=== PATIENT | male | born 1955 | race Caucasian/White ===

== ENCOUNTER 2021-09-15 19:11 | Inpatient (IN) | payer OTHER, SELFPAY ==
[2021-09-15] VITALS (24 sets, daily range): BP systolic 98–140; BP diastolic 75–90; PULSE 96–98; RESP 20; TEMP 37.8; O2SAT 94–100
--- NOTE | ~2021-09-15 | NM_ITS ---
EXAMINATION: NM pulmonary perfusion DATE: 09/16/2021 10:37 INDICATION: Shortness of breath. TECHNIQUE: 5.9 mCi Tc-99m MAA was administered intravenously for perfusion images. Scintigraphic mary ges of the chest were obtained. COMPARISON: Chest single view 09/15/2021 FINDINGS: Perfusion images show small defects in the lower lobes. IMPRESSION: 1. Pulmonary embolism absent (low probability). Reviewed, dictated and finalized at location [facility].
--- NOTE | ~2021-09-15 | XR_ITS ---
EXAMINATION: XR chest 1V portable INDICATION: Shortness of breath and cough TECHNIQUE: Portable AP chest at 1959 hours COMPARISON: None available FINDINGS: There are airspace opacities of the left lung base. There is no pleural effusion or pneumot horax. The cardiomediastinal silhouette is normal. IMPRESSION: 1. Left basilar airspace opacities, likely pneumonia. Reviewed, dictated and finalized at location F.
--- NOTE | 2021-09-15 19:45 | ECG_ITS ---
Measurements Intervals [place] Rate: 92 P: 23 [place]: 158 QRS: 31 QRSD: 97 T: 54 QT: 364 QTc: 451 Interpretive Statements SINUS RHYTHM NORMAL ECG NO PREVIOUS ECG AVAILABLE FOR COMPARISON Electronically Signed On 09-16-2021 16:49:27 CDT by Andrey Rice M.D.
[2021-09-15] MEDS: methylPREDNISolone SOD SUCC 125 MG VIAL IV PUSH (19:56)
[2021-09-15 20:07] LABS: Basophils Absolute Auto 0.03 K/mm3 (0.00-0.10); Basophils Percent Auto 0.4 % (0.0-1.0); Eosinophils Absolute Auto 0.18 K/mm3 (0.02-0.50); Eosinophils Percent Auto 2.3 % (1.0-6.0); Hematocrit 38.8 % (37.0-46.0); Hemoglobin 12.4 g/dL (12.4-15.3); Immature Granulocyte Absolute 0.05 K/mm3 (0.00-0.00); Immature Granulocyte Percent A 0.6 % (0.0-0.0); Immature Platelet Fraction Pct 1.3 % (1.0-7.0); Lymphocytes Absolute Auto 1.36 K/mm3 (1.10-4.50); Lymphocytes Percent Auto 17.2 % (18.0-42.0); Mean Corpuscular Hemoglobin 31.1 pg (27.0-31.0); Mean Corpuscular Volume 97.2 fL (78.0-102.0); Mean Platelet Volume 9.2 fl (8.7-11.0); Monocytes Absolute Auto 0.68 K/mm3 (0.10-0.90); Monocytes Percent Auto 8.6 % (2.0-11.0); Neutrophils Absolute Auto 5.6 K/mm3 (1.7-7.2); Neutrophils Percent Auto 70.9 % (50.0-70.0); Platelet Count Result 130 K/mm3 (150-420); Red Blood Count 3.99 M/mm3 (4.70-6.10); Red Cell Distribution Width 12.5 % (11.6-14.4); White Blood Count 7.9 K/mm3 (4.8-10.8)
[2021-09-15] MEDS: IPRATROPIUM 0.5 MG/ALBUTEROL SULFATE 2.5 MG AMPUL.NEB 3 ML INHALATION (20:10)
[2021-09-15 20:31] LABS: Alanine Aminotransferase 14 U/L (16-63); Albumin Level 3.2 g/dL (3.4-5.0); Alkaline Phosphatase 76 U/L (46-116); Anion Gap 7 mmol/L (8-16); Aspartate Amino Transferase 14 U/L (15-37); Bilirubin,Total 0.6 mg/dL (0.00-1.00); Blood Urea Nitrogen 23 mg/dL (7-18); Calcium 8.4 mg/dL (8.5-10.1); Carbon Dioxide 26 mmol/L (21-32); Chloride 100 mmol/L (98-108); Estimated Glomerular Filt Rate 32; Glucose 127 mg/dL (70-99); Magnesium 1.6 mg/dL (1.8-2.4); NT Pro B Type Natriuretic Pept 177 pg/mL (0-125); Osmolality Calculated 281 mOsm/kg (285-295); Potassium 3.7 mmol/L (3.5-5.1); Sodium 133 mmol/L (136-145); Total Protein 7.1 g/dL (6.4-8.2); Troponin I 6.9 ng/L (0.00-60.4)
[2021-09-15 20:40] LABS: Prothrombin Time 10.7 Seconds (9.50-12.10)
--- NOTE | 2021-09-15 20:51 | ED.SOB ---
HPI - SOB/Dyspnea General Chief Complaint: Upper Respiratory Infection Stated Complaint: trouble sleeping, cough, troubles with throat Source: patient and family Mode of arrival: ambulatory History of Present Illness HPI Narrative: this is a 66-year-old gentleman that presents with weakness cough congestion with increasing shortness of breath has been off and on for the last month but has some worse over the last 24hours patient currently on Symbicort/history of COPD and depression currently afebrile O2 sats and vital signs are stable patient denies having any chest pain no shortness no abdominal pain no nausea vomiting no flank pain patient is not a smoker and quit many years ago. MD elicited complaint: shortness of breath and cough Pertinent past history: COPD Onset (ago): week(s) Context: recent illness Timing: constant Severity: moderate Exacerbating factors: coughing Known history of: COPD Associated symptoms: cough Related Data Home Medications Medication Instructions Recorded Confirmed budesonide-formoterol HFA 160 1 inh inhalation DAILY 09/15/21 09/15/21 mcg-4.5 mcg/actuation aerosol inhaler (Symbicort) cyclobenzaprine 5 mg tablet 1 tablet PO TID 09/15/21 09/15/21 duloxetine 60 mg capsule,delayed 1 cap PO DAILY 09/15/21 09/15/21 release finasteride 5 mg tablet 1 tablet PO DAILY 09/15/21 09/15/21 fluticasone propionate 50 1 ea intranasal DAILY 09/15/21 09/15/21 mcg/actuation nasal spray,suspension hydrocodone 5 mg-acetaminophen 325 1 tablet PO Q6-8H 09/15/21 09/15/21 mg tablet ondansetron HCl 8 mg tablet 1 tablet PO DAILY 09/15/21 09/15/21 sertraline 50 mg tablet 1 tablet PO DAILY 09/15/21 09/15/21 tacrolimus 1 mg capsule, 1 cap PO TID 09/15/21 09/15/21 immediate-release tamsulosin 0.4 mg capsule 1 cap PO DAILY 09/15/21 09/15/21 trazodone 150 mg tablet 1 tablet PO DAILY 09/15/21 09/15/21 Allergies Allergy/AdvReac Type Severity Reaction Status Date / Time No Known Allergies Allergy Verified 09/15/21 19:32 Review of Systems Review of Systems: All systems reviewed & are unremarkable except as noted in HPI and below PMFSH Comments chest x-ray performed shows a left lower lobe infiltrate/opacities has an elevated D-dimer but in the context of having elevated creatinine will avoid CTA will start Eliquis and obtain a view to V/Q scan in the morning patient and family advised and informed of his current Lab and x-ray findings. Exam Const: General: alert Limitations: no limitations HENMT: Head: normal to inspection Eyes: Conjunctivae: conjunctivae normal Neck: Neck: normal visual inspection, no lymphadenopathy and no meningeal signs Chest: Chest palpation & inspection: normal inspection of the chest Resp: Effort & Inspection: normal respiratory effort Auscultation: diminished lung sounds Cardio: Rate: regular rate Rhythm: regular rhythm GI: GI Palp: Yes Soft to palpation Auscultation: normal bowel sounds Skin: General skin exam: normal color Rashes: no rashes Wounds: no wounds Neuro: General: patient oriented x3 and moves all extremities Extrem: General: normal to inspection Psych: Mental Status: mental status grossly normal Course Course Emergency Course: Labs and chest x-ray reviewed with family has an elevated D-dimer and will start Eliquis he has an elevated creatinine which prohibits getting a CTA and will admit and have a V/Q scan performed, patient with x-ray showing a left lower lobe infiltrate and will give a dose of ceftriaxone. Vital Signs Vital signs: Vital Signs Temperature 37.8 C H 09/15/21 19:30 Pulse Rate 98 09/15/21 19:30 Respiratory Rate 09/15/21 19:30 Blood Pressure 117/90 09/15/21 19:30 Pulse Oximetry 99 09/15/21 19:30 Oxygen Delivery Room Air 09/15/21 19:30 Temperature 37.8 C H 09/15/21 19:30 Pulse Rate 96 09/15/21 20:16 Respiratory Rate 20 09/15/21 19:30 Blood Pressure 128/76 09/15/21 20:16 Pulse
[2021-09-15 20:52] LABS: D Dimer 1.04 mg/L (0.19-0.50)
[2021-09-15] MEDS: SODIUM CHLORIDE 0.9% IV 1,000 ML 999 ML IV CONT (21:26)
[2021-09-15] MEDS: APIXABAN 2.5 MG TABLET 10 MG PO (21:27)
[2021-09-16] VITALS: BP 183/85; PULSE 93; RESP 20; TEMP 36.6; O2SAT 95
[2021-09-16] MEDS: ENOXAPARIN 100 MG/ML SYRINGE 94 MG SUB-Q ×2 (00:02→08:22)
[2021-09-16] MEDS: SODIUM CHLORIDE 0.9% IV 1,000 ML 100 ML IV CONT (00:03)
[2021-09-16] MEDS: traZODone HCL 50 MG TABLET 150 MG PO (00:05)
[2021-09-16] MEDS: IPRATROPIUM 0.5 MG/ALBUTEROL SULFATE 2.5 MG AMPUL.NEB 3 ML INHALATION ×2 (00:13→06:22)
[2021-09-16 00:14] VITALS: PULSE 88; RESP 19; O2SAT 95
--- NOTE | 2021-09-16 00:18 | PC.NURSE ---
Leslie admitted to room 204 from the ER. Patient is ambulatory, alert and oriented X 4. Patient oriented to room and call light and denies pain.
[2021-09-16 00:19] VITALS: PULSE 90; RESP 19; O2SAT 95
[2021-09-16 00:21] VITALS: BMI 32.2
[2021-09-16 05:06] LABS: Hematocrit 36.1 % (37.0-46.0); Hemoglobin 12.1 g/dL (12.4-15.3); Immature Platelet Fraction Pct 1.1 % (1.0-7.0); Mean Corpuscular HGB Conc 33.5 g/dL (32.0-36.0); Mean Corpuscular Hemoglobin 32.4 pg (27.0-31.0); Mean Corpuscular Volume 96.8 fL (78.0-102.0); Mean Platelet Volume 9.7 fl (8.7-11.0); Platelet Count Result 121 K/mm3 (150-420); Red Blood Count 3.73 M/mm3 (4.70-6.10); Red Cell Distribution Width 12.2 % (11.6-14.4); White Blood Count 5.1 K/mm3 (4.8-10.8)
[2021-09-16 05:21] LABS: Alanine Aminotransferase 11 U/L (16-63); Albumin Level 2.8 g/dL (3.4-5.0); Alkaline Phosphatase 71 U/L (46-116); Anion Gap 5 mmol/L (8-16); Aspartate Amino Transferase 13 U/L (15-37); Bilirubin,Total 0.3 mg/dL (0.00-1.00); Blood Urea Nitrogen 23 mg/dL (7-18); Calcium 8.3 mg/dL (8.5-10.1); Carbon Dioxide 24 mmol/L (21-32); Chloride 105 mmol/L (98-108); Estimated CRCL calculation 38 ml/min; Estimated Glomerular Filt Rate 38; Glucose 247 mg/dL (70-99); Magnesium 1.8 mg/dL (1.8-2.4); Osmolality Calculated 289 mOsm/kg (285-295); Potassium 4.6 mmol/L (3.5-5.1); Sodium 134 mmol/L (136-145); Total Protein 6.7 g/dL (6.4-8.2)
[2021-09-16 06:25] VITALS: PULSE 82; RESP 16; O2SAT 94
[2021-09-16 06:36] VITALS: PULSE 88; RESP 18; O2SAT 100
[2021-09-16 08:00] VITALS: BP 160/86; PULSE 88; RESP 22; TEMP 36.8; O2SAT 95
[2021-09-16] MEDS: FLUTICASONE PROPIONATE 0.05% NA SPR 16 GM BTL (*BKC) 1 SPRAY NASAL (08:21)
[2021-09-16] MEDS: DULoxetine HCL 30 MG CAPSULE.DR 60 MG PO (08:21)
[2021-09-16] MEDS: TAMSULOSIN HCL 0.4 MG CAPSULE PO (08:23)
[2021-09-16] MEDS: BENZONATATE 100 MG CAPSULE 200 MG PO (08:23)
[2021-09-16] MEDS: SERTRALINE HCL 50 MG TABLET PO (08:24)
[2021-09-16] MEDS: guaiFENesin 12 HR 600 MG TABCR 1200 MG PO (08:24)
[2021-09-16] MEDS: FINASTERIDE 5 MG TABLET PO (08:24)
[2021-09-16] MEDS: methylPREDNISolone SOD SUCC 40 MG VIAL IV PUSH (08:25)
[2021-09-16] MEDS: CYCLOBENZAPRINE HCL 5 MG TABLET PO (08:25)
[2021-09-16] MEDS: HYDROcodone/acetaminophen (*CRX) 5-325 MG TABLET 1 TAB PO (10:35)
--- NOTE | 2021-09-16 11:20 | PM.SD2 ---
Same Day Admit/Disch: HPI History of Present Illness Chief complaint: pheumonia Narrative: Maury Burch is a 66 year old male that presented to urgent care with uncontrollable coughing and shortness of breath. Patient has a past medical history of COPD, BPH, depression and anxiety and chronic pain. According to patient for approximately 1 week he has been experiencing uncontrolled coughing with shortness of breath. Patient notes that he coughed so hard that he felt as if he was going to blackout. Patient did note that he took his Symbicort inhaler during these coughing spells. Patient notes yesterday he was working in the yard and started to cough and felt lightheaded at that time he told his daughter that he wanted to come to our emergency department. Vital signs 160/86, 88, 22, 98.2, 95% on room air, WBCs 5.1, hemoglobin 12.1, hematocrit 36.1, platelets 121, D-dimer 1.04, sodium 134, potassium 4.6, BUN 23, creatinine 1.80, glucose 247, total bilirubin 0.3, AST 13, ALT 11, chest x-ray indicates pneumonia VQ scan low probability of PE, EKG sinus rhythm with a heart rate of 92. Patient be admitted for COPD extubation and pneumonia. Patient will discharge home today with antibiotics, albuterol inhaler, steroids and nebulizer with treatment. Patient notes that his situation has improved he still continues to have a cough but is more controlled. The patient denies CP, palpitation, extremity numbness, lightheadedness, dizziness, constipation, diarrhea, chills, or fever. [facility] Past Medical History Medical History (Updated 09/16/21 @ 11:29 by JAKE Laws) Anxiety and depression BPH (benign prostatic hyperplasia) COPD (chronic obstructive pulmonary disease) Insomnia Social History Social History Smoking status: Former smoker Tobacco type: cigarettes Alcohol intake: unknown Substance use: never Substance use type: does not use Spiritual care concerns: No Same Day Admit/Disch: Med Pre-admit Medications Home Medications Medication Instructions Recorded Confirmed Type budesonide-formoterol HFA 160 1 inh inhalation DAILY 09/15/21 09/15/21 History mcg-4.5 mcg/actuation aerosol inhaler (Symbicort) cyclobenzaprine 5 mg tablet 1 tablet PO TID 09/15/21 09/15/21 History duloxetine 60 mg capsule,delayed 1 cap PO DAILY 09/15/21 09/15/21 History release finasteride 5 mg tablet 1 tablet PO DAILY 09/15/21 09/15/21 History fluticasone propionate 50 1 ea intranasal DAILY 09/15/21 09/15/21 History mcg/actuation nasal spray,suspension hydrocodone 5 mg-acetaminophen 325 1 tablet PO Q6-8H 09/15/21 09/15/21 History mg tablet ondansetron HCl 8 mg tablet 1 tablet PO DAILY 09/15/21 09/15/21 History sertraline 50 mg tablet 1 tablet PO DAILY 09/15/21 09/15/21 History tacrolimus 1 mg capsule, 1 cap PO TID 09/15/21 09/15/21 History immediate-release tamsulosin 0.4 mg capsule 1 cap PO DAILY 09/15/21 09/15/21 History trazodone 150 mg tablet 1 tablet PO DAILY 09/15/21 09/15/21 History albuterol sulfate 90 mcg/actuation 1 inh inhalation QID PRN shortness 09/16/21 Rx aerosol inhaler of breath or wheezing #6.7 grams azithromycin 500 mg tablet 500 mg PO DAILY 7 days #7 tabs 09/16/21 Rx benzonatate 100 mg capsule 200 mg PO TID 7 days #42 caps 09/16/21 Rx cefdinir 300 mg capsule 300 mg PO Q12H 10 days #20 caps 09/16/21 Rx guaifenesin 400 mg tablet 400 mg PO QID 7 days #28 tabs 09/16/21 Rx ipratropium 0.5 mg-albuterol 3 mg 3 ml inhalation Q6H PRN shortness 09/16/21 Rx (2.5 mg base)/3 mL nebulization of breath #180 mL soln methylprednisolone 4 mg tablets in 4 mg PO DAILY #21 ea 09/16/21 Rx a dose pack (Medrol (Sergio)) nebulizers #1 ea 09/16/21 Rx Exam Narrative: GENERAL: This is a well-nourished, well-developed patient, in no apparent distress. HEAD: normocephalic, atraumatic. EYES: PERRL. Sclera clear/white. Vision is grossly intact. EARS: External ears normal, auditory canals clear and witho
--- NOTE | 2021-09-16 12:54 | PC.NURSE ---
1200 daughter at bedside went over orders with both. they both claim they understand [facility] and address given. meds were [facility]. dc per wc to [facility].
--- NOTE | 2021-09-20 09:49 | PC.NURSE ---
Unable to contact for discharge call back.
== END 2021-09-16 12:00 | disposition home or self-care (01) | DRG 139 ==
LOC: CHSED 19:20 → CHS2ND 22:41
PROVIDERS: Nurse Practitioner; Admitting Provider Internal Medicine; Emergency Provider Emergency Medicine; PCP Family Medicine; Visit Provider Internal Medicine
DX: J44.9 Chronic obstructive pulmonary disease, unspecified (principal); J18.9 Pneumonia, unspecified organism; R79.1 Abnormal coagulation profile; R06.00 Dyspnea, unspecified; E87.8 Other disorders of electrolyte and fluid balance, not elsewhere classified; J44.0 Chronic obstructive pulmonary disease with (acute) lower respiratory infection; N40.0 Benign prostatic hyperplasia without lower urinary tract symptoms; R94.4 Abnormal results of kidney function studies; F41.9 Anxiety disorder, unspecified; F32.A Depression, unspecified; Z87.891 Personal history of nicotine dependence
CPT/HCPCS: 36415; 71045; 78580; 80053; 83735; 83880; 84484; 85025; 85027; 85055; 85380; 85610; 85730; 87040; 93005; 94640; 96365; 96375; 99285; A9270; A9540; J0456; J0696; J1650; J2920; J2930; J7030

== ENCOUNTER 2021-10-13 12:15 | Outpatient (CLI) | payer OTHER, SELFPAY ==
--- NOTE | ~2021-10-13 | US_ITS ---
EXAMINATION: US arterial ankle brachial ind DATE: 10/13/2021 13:15 INDICATION: Claudication TECHNIQUE: Segmental pressures and plethysmographic and Doppler waveforms of the brachial and lower e xtremity arteries were obtained. COMPARISON: None. FINDINGS: Right and left brachial artery pressures of 115 mm Hg and 124 mm Hg, respectively, are concordant (no rmal difference <= 30 mmHg). The right ankle-brachial index (KAYLEIGH) is 1.38 (normal >= 0.9-1.0).. Arterial Doppler waveforms are tri phasic. The left KAYLEIGH is 1.31. The left TBI is . Arterial Doppler waveforms triphasic at the posterior tibial artery and lower amplitude and biphasic at the dorsalis pedis artery. IMPRESSION: Bilateral normal KAYLEIGH Reviewed, dictated and finalized at [facility]. Reviewed, dictated and finalized at location B. IMPRESSION: Bilateral normal KAYLEIGH
== END 2021-10-13 12:16 | disposition home or self-care (01) ==
LOC: CHSIMG 12:17
PROVIDERS: PCP Family Medicine; Visit Provider Family Medicine
DX: I73.9 Peripheral vascular disease, unspecified (principal)
CPT/HCPCS: 93922

== ENCOUNTER 2022-08-26 14:27 | Emergency (ER) | payer MEDICARE, MEDICAID, SELFPAY ==
[2022-08-26] VITALS (14 sets, daily range): BP systolic 140–172; BP diastolic 75–94; PULSE 66–92; RESP 17–20; TEMP 36.9–37.2; O2SAT 96–99
--- NOTE | ~2022-08-26 | CT_ITS ---
EXAMINATION: CT abdomen pelvis w con DATE: 08/26/2022 16:54 INDICATION: JAUNDICE, DIZZINESS HX LIVER TRANSPLANT 6 YRS AGO TECHNIQUE: Computed tomography (CT) of the abdomen and pelvis was performed with 100 mL Omnipaque-350 intravenous contrast. Automated exposure control and iterative reconstruction technique were employe d. The dose-length product was 932.99 mGy-cm. COMPARISON: 06/15/2014. FINDINGS: Lower thorax: Bibasilar atelectasis/scar. Lingular calcified granuloma. Coronary artery calcification . Symmetric bilateral gynecomastia. Liver: The transplant liver is normal in size. Moderate periportal edema. Patent hepatic veins. Biliary/Gallbladder: Gallbladder is absent. No bile duct dilation or inflammation. Pancreas: Atrophy. Spleen: Multiple stable hypodensities may represent cysts or hemangiomas. Adrenals:No mass. Kidneys: Bilateral simple cysts and lesions that are too small to characterize but also likely repres ent cysts. Punctate right midpole nonobstructing calculus. No hydronephrosis. GI tract: No small or large bowel dilation. Normal appendix. Diverticulosis without diverticulitis. Mesentery/Peritoneum: No ascites, mass, or free air. Upper abdominal varices. Patent portal vein and IVC. Retroperitoneum: No mass. Atherosclerotic abdominal aortic and/or arterial calcifications. 2.8 cm fus iform infrarenal abdominal aortic aneurysm. Pelvis: Pelvic organs are within normal limits. Soft Tissues: Soft tissues and body wall unremarkable. Bones: No acute osseous finding. IMPRESSION: Moderate periportal edema, a nonspecific finding that can be seen with liver transplantation as well as hepatitis, heart failure, cholangitis, and other entities. Additional chronic and incidental findi ngs detailed above. Reviewed, dictated and finalized at location K. IMPRESSION: Moderate periportal edema, a nonspecific finding that can be seen with liver tr ansplantation as well as hepatitis, heart failure, cholangitis, and other entit ies. Additional chronic and incidental findings detailed above.
--- NOTE | 2022-08-26 14:43 | ECG_ITS ---
Measurements Intervals [place] Rate: 89 P: 47 NE: 165 QRS: 67 QRSD: 105 T: 63 QT: 317 QTc: 386 Interpretive Statements SINUS RHYTHM MINIMAL Q WAVES- ANTEROLATERAL LEADS BORDERLINE ECG COMPARED TO ECG 09/15/2021 20:10:24 NO SIGNIFICANT CHANGES Electronically Signed On 08-26-2022 21:03:09 CDT by Christian Hicks D.O.
[2022-08-26] MEDS: SODIUM CHLORIDE 0.9% IV 1,000 ML 999 ML IV CONT (15:11)
[2022-08-26 16:07] LABS: Hematocrit 38.4 % (37.0-46.0); Hemoglobin 13.1 g/dL (12.4-15.3); Immature Platelet Fraction Pct 2.2 % (1.0-7.0); Mean Corpuscular HGB Conc 34.1 g/dL (32.0-36.0); Mean Corpuscular Hemoglobin 32.8 pg (27.0-31.0); Platelet Count Result 104 K/mm3 (150-420); Red Cell Distribution Width 16.5 % (11.6-14.4); White Blood Count 4.4 K/mm3 (4.8-10.8)
[2022-08-26 16:08] LABS: Bilirubin Urine 3+ (Negative); Blood Urine Negative (Negative); Glucose Urine UA Negative (Negative); Ketones Urine Negative (Negative); Leukocyte Esterase Ur Trace LEU/UL (Negative); Nitrate Urine Negative (Negative); Protein Urine 1+ (Negative); pH Urine 6.5 (5.0-8.0)
[2022-08-26 16:20] LABS: Add Urine Microscopic? YES; Amorphous Sediment Urine Few; Appearance Urine Slightly Cloudy (Clear); Color Urine Dark Amber (Yellow); Squamous Epithelial Cell Urine Many /hpf (Few); WBC Urine None seen /hpf (0-3)
[2022-08-26 16:21] LABS: Alanine Aminotransferase 407 U/L (16-63); Albumin Level 2.6 g/dL (3.4-5.0); Alkaline Phosphatase 511 U/L (46-116); Anion Gap 9 mmol/L (8-16); Aspartate Amino Transferase 340 U/L (15-37); Bilirubin,Total 12.4 mg/dL (0.00-1.00); Blood Urea Nitrogen 15 mg/dL (7-18); Calcium 8.6 mg/dL (8.5-10.1); Carbon Dioxide 24 mmol/L (21-32); Chloride 106 mmol/L (98-108); Estimated CRCL calculation 44 ml/min; Estimated Glomerular Filt Rate 46; Glucose 105 mg/dL (70-99); Lipase 16 U/L (16-77); Osmolality Calculated 288 mOsm/kg (285-295); Potassium 2.9 mmol/L (3.5-5.1); Sodium 139 mmol/L (136-145); Total Protein 5.9 g/dL (6.4-8.2)
[2022-08-26 16:22] LABS: Partial Thromboplastin Time 21.1 SEC (23.90-30.70); Prothrombin Time 10.8 Seconds (9.50-12.10)
[2022-08-26 16:24] LABS: Lactic Acid Reflex 1.2 mmol/L (0.4-2.0)
[2022-08-26 16:42] LABS: Band Neutrophils Percent 0 % (0-6); Basophils Absolute Manual 0.04 K/mm3 (0-0.1); Basophils Percent Manual 1 % (0-1); Eosinophils Absolute Manual 0.08 K/mm3 (0.02-0.5); Eosinophils Percent Manual 2 % (1-6); Lymphocytes Percent Manual 25 % (18-44); Monocytes Absolute Manual 0.39 K/mm3 (0.1-0.90); Monocytes Percent Manual 9 % (3-9); Neutrophils Absolute Manual 2.77 K/mm3 (1.3-6.7); Neutrophils Percent Manual 63 % (46-73); Platelet Estimate Adequate (Adequate); Schistocytes None Seen (NORMAL); Total Cells Counted 100
[2022-08-26 17:31] LABS: Ammonia 66 umol/L (11-32)
[2022-08-26] MEDS: SODIUM CHLORIDE 0.9% IV 500 ML 999 ML IV CONT (17:57)
[2022-08-26] MEDS: KCL 20 MEQ/SW 100 ML 100 ML 50 MEQ IVPB (17:58)
[2022-08-26] MEDS: POTASSIUM BICARBONATE 25 MEQ TABEF 50 MEQ PO (17:58)
--- NOTE | 2022-08-26 18:12 | ED.DIZZY ---
HPI - Dizziness General Chief Complaint: Dizziness Stated Complaint: jaundice Time Seen by Provider: 08/26/22 14:28 Source: patient and family Mode of arrival: ambulatory Limitations: no limitations History of Present Illness HPI Narrative: this is a 67-year-old gentleman with a history of liver transplant history of alcohol abuse and had quit for some time and recently had started alcohol use again presents with his daughter with the sensation of lightheadedness and just some weakness, also the patient has daughter has noticed that he is jaundiced skin and scleral icterus. The patient with a history of transplanted liver at [facility] approximately 6 years ago. The patient apparently is noncompliant with his medical care currently not on tacrolimus. Patient denies and fever or chills there is no abdominal pain no nausea or vomiting no flank pain does have dark colored urine with no diarrhea or constipation. MD elicited complaint: lightheadedness Onset (ago): hour(s) Timing: gradual onset Severity: mild Description: lightheadedness Related Data Home Medications Medication Instructions Recorded Confirmed budesonide-formoterol HFA 160 1 inh inhalation DAILY 09/15/21 08/27/22 mcg-4.5 mcg/actuation aerosol inhaler (Symbicort) duloxetine 60 mg capsule,delayed 1 cap PO DAILY 09/15/21 08/27/22 release finasteride 5 mg tablet 1 tablet PO DAILY 09/15/21 08/27/22 fluticasone propionate 50 1 ea intranasal DAILY 09/15/21 08/27/22 mcg/actuation nasal spray,suspension hydrocodone 5 mg-acetaminophen 325 1 tablet PO Q6-8H 09/15/21 08/27/22 mg tablet ondansetron HCl 8 mg tablet 1 tablet PO BID 09/15/21 08/27/22 sertraline 50 mg tablet 1 tablet PO DAILY 09/15/21 08/27/22 tacrolimus 1 mg capsule, 1 cap PO TID 09/15/21 08/27/22 immediate-release tamsulosin 0.4 mg capsule 1 cap PO HS 09/15/21 08/27/22 trazodone 150 mg tablet 1 tablet PO DAILY 09/15/21 08/27/22 amlodipine 10 mg tablet 10 mg PO DAILY 08/27/22 08/27/22 cyclobenzaprine 5 mg tablet 5 mg PO TID PRN Muscle Pain 08/27/22 08/27/22 furosemide 40 mg tablet 40 mg PO DAILY 08/27/22 08/27/22 gabapentin 800 mg tablet 800 mg PO DAILY 08/27/22 08/27/22 melatonin 3 mg capsule 3 mg PO HS PRN Insomnia 08/27/22 08/27/22 montelukast 10 mg tablet 10 mg PO DAILY 08/27/22 08/27/22 pantoprazole 40 mg tablet,delayed 40 mg PO QAM 08/27/22 08/27/22 release Allergies Allergy/AdvReac Type Severity Reaction Status Date / Time No Known Allergies Allergy Verified 08/26/22 14:55 Review of Systems Review of Systems: All systems reviewed & are unremarkable except as noted in HPI and below PMFSH Past Medical History Medical History Anxiety and depression BPH (benign prostatic hyperplasia) COPD (chronic obstructive pulmonary disease) Insomnia Social History Social History Smoking status: Former smoker Tobacco type: cigarettes Alcohol intake: unknown Substance use: never Substance use type: does not use Spiritual care concerns: No Exam Const: General: no acute distress Nutritional Appearance: well nourished Orientation/consciousness: patient oriented x3 Limitations: no limitations HENMT: Head: normal to inspection Eyes: Conjunctivae: conjunctivae normal and conjunctival abnormality ( Scleral icterus) Pupils: Equal, round and reactive pupils present EOM: EOMs intact bilaterally Neck: Neck: normal visual inspection Chest: Chest palpation & inspection: normal inspection of the chest Resp: Effort & Inspection: normal respiratory effort Auscultation: clear to auscultation bilaterally Cardio: Rate: regular rate Rhythm: regular rhythm GI: Auscultation: normal bowel sounds : General: Yes bladder normal to palpation Urinary Catheter: Urinary Catheter: patent and draining Back/Spine/Pelvis: Back: no CVA tenderness Skin: General skin exam: j
[2022-08-27] VITALS (7 sets, daily range): BP systolic 127–147; BP diastolic 61–89; PULSE 81–96; RESP 17–20; TEMP 36.8–37.9; O2SAT 96–98
--- NOTE | 2022-08-27 05:01 | PC.NURSE ---
pt states that the last time he had any alcohol was on 08/23/22.
[2022-08-27 08:00] LABS: Hemoglobin 12.9 g/dL (12.4-15.3); Mean Corpuscular HGB Conc 33.9 g/dL (32.0-36.0); Mean Corpuscular Volume 94.3 fL (78.0-102.0); Mean Platelet Volume 9.8 fl (8.7-11.0); Platelet Count Result 110 K/mm3 (150-420); Red Blood Count 4.03 M/mm3 (4.70-6.10); Red Cell Distribution Width 16.7 % (11.6-14.4)
[2022-08-27 08:14] LABS: Alanine Aminotransferase 355 U/L (16-63); Albumin Level 2.4 g/dL (3.4-5.0); Alkaline Phosphatase 505 U/L (46-116); Anion Gap 10 mmol/L (8-16); Aspartate Amino Transferase 310 U/L (15-37); Bilirubin,Total 13.5 mg/dL (0.00-1.00); Blood Urea Nitrogen 14 mg/dL (7-18); Calcium 8.2 mg/dL (8.5-10.1); Carbon Dioxide 23 mmol/L (21-32); Chloride 107 mmol/L (98-108); Estimated CRCL calculation 48 ml/min; Estimated Glomerular Filt Rate 51; Glucose 121 mg/dL (70-99); Osmolality Calculated 291 mOsm/kg (285-295); Potassium 3.7 mmol/L (3.5-5.1); Sodium 140 mmol/L (136-145); Total Protein 5.7 g/dL (6.4-8.2)
[2022-08-27] MEDS: HYDROcodone/acetaminophen (*CRX) 5-325 MG TABLET 1 TAB PO ×2 (08:53→13:01)
[2022-08-27 10:25] LABS: Band Neutrophils Percent 0 % (0-6); Basophils Absolute Manual 0.12 K/mm3 (0-0.1); Basophils Percent Manual 2 % (0-1); Eosinophils Absolute Manual 0.18 K/mm3 (0.02-0.5); Eosinophils Percent Manual 3 % (1-6); Lymphocytes Absolute Manual 1.32 K/mm3 (1.1-4.5); Lymphocytes Percent Manual 22 % (18-44); Monocytes Absolute Manual 0.54 K/mm3 (0.1-0.90); Monocytes Percent Manual 9 % (3-9); Neutrophils Absolute Manual 3.84 K/mm3 (1.3-6.7); Neutrophils Percent Manual 64 % (46-73); Platelet Estimate Adequate (Adequate); Schistocytes None Seen (NORMAL); Total Cells Counted 100
--- NOTE | 2022-08-27 12:03 | ED.PROGRESS ---
Subjective Date/time seen: 08/27/22 12:03 Interval history: The patient has been in the emergency room since yesterday, and was seen by the previous provider. See their note for further details. In brief, the patient presents with dizziness and lightheadedness which she responded to IV fluids, 2 L, and his symptoms from that have resolved. He still feels weak and tired. He does have jaundice which is painless. No abdominal discomfort to speak of. Does have lower back pain which is chronic for him and [address] was given earlier. He is on [place] [address] at home for pain. He has been noncompliant with his medications and his follow-up following his orthotopic liver transplantation at [facility] 6 years ago. He has gotten back to drinking alcohol again. No other complaints. A potassium yesterday of 2.9 was noted, which was supplemented. Repeat labs have been done, see results below. Review of Systems Review of Systems All systems reviewed & are unremarkable except as noted in HPI and below Constitutional Constitutional: Denies chills, Denies excessive sweating, Reports fatigue ( Generalized weakness, continues today), Denies fever(s), Denies headache(s) and Reports weakness ( generalized weakness continues today) Eyes Eyes: Denies change in vision and Denies photophobia ENT Denies dysphagia, Reports dizziness ( Dizziness yesterday, much improved and nearly resolved now.), Denies headache(s), Denies lip swelling, Denies nasal congestion, Denies sore throat and Denies tongue swelling Cardiovascular Cardiovascular: Denies chest pain, Denies syncope, Denies rapid heart rate and Denies dyspnea Respiratory Respiratory: Denies cough, Denies dyspnea and Denies wheezing Gastrointestinal Gastrointestinal: Denies abdominal pain, Denies constipation, Denies dysphagia, Denies diarrhea, Denies nausea and Denies vomiting Comments: no abdominal pain. painless jaundice present, both cutaneous and scleral Genitourinary Genitourinary: Denies hematuria, Denies dysuria, Denies urinary frequency and Denies urinary urgency Musculoskeletal Musculoskeletal: Reports back pain ( chronic), Denies myalgias, Denies arthralgias, Denies joint swelling and Denies numbness Integumentary/Breasts Skin/Breast: Denies pruritus, Denies erythema and Denies rash Neurologic Denies confusion, Denies dizziness, Denies syncope, Denies headache(s), Denies focal weakness, Denies numbness and Denies weakness Psychiatric Psychiatric: Denies anxiety and Denies confusion Endocrine Endocrine: Denies excessive sweating and Denies fatigue Hematologic/Lymphatic Hematologic/Lymphatic: Denies easy bleeding and Denies easy bruising Allergic/Immunologic Allergic/Immunologic: Denies lip swelling, Denies tongue swelling and Denies wheezing Exam Const General: healthy appearing, no acute distress, alert and well nourished Nutritional Appearance: well nourished Orientation/consciousness: patient oriented x3 Limitations: no limitations HENMT Head: normal to inspection Ears: external ears normal Face/Nose/Sinus: normal facial exam Face and sinus: normal facial exam Mouth: Yes moist mucous membranes Throat: posterior oropharynx normal Eyes Conjunctivae: conjunctivae normal Pupils: Equal, round and reactive pupils present EOM: EOMs intact bilaterally Other: scleral icterus Neck Neck: normal visual inspection and no meningeal signs Chest Chest palpation & inspection: normal inspection of the chest and no tenderness Resp Effort & Inspection: normal respiratory effort and not labored Auscultation: clear to auscultation bilaterally, no crackles, no rhonchi and no wheezes Cardio Rate: regular rate Rhythm: regular rhythm Heart sounds: no murmurs GI Inspection: non-distended GI Palp: Yes Soft to palpation, No Tenderness to palpation present (GI), No Guarding due to palpation present (GI) and No Rebound tenderness present General: Yes no CVA tenderness Back/Spine/Pelvis Back: no CVA
--- NOTE | 2022-08-27 15:25 | PC.NURSE ---
Per [facility] transfer center, patient remains on the transfer list and has been placed as a priority for transfer
== END 2022-08-27 17:58 | disposition short-term general hospital (02) ==
PROVIDERS: Emergency Medicine; Emergency Provider Emergency Medicine; PCP Family Medicine
DX: K70.10 Alcoholic hepatitis without ascites (principal); E87.6 Hypokalemia; J44.9 Chronic obstructive pulmonary disease, unspecified; Z94.4 Liver transplant status; Z79.891 Long term (current) use of opiate analgesic; Z87.891 Personal history of nicotine dependence
CPT/HCPCS: 36415; 74177; 80053; 81001; 82140; 83605; 83690; 85025; 85055; 85610; 85730; 93005; 96361; 96365; 96366; 99285; A9270; J3480; J7030; J7040; Q9967

== ENCOUNTER 2022-09-16 18:48 | Emergency (ER) | payer MEDICARE, MEDICAID, SELFPAY ==
[2022-09-16] VITALS (12 sets, daily range): BP systolic 116–135; BP diastolic 69–78; PULSE 92; RESP 20; TEMP 37.2; O2SAT 94–99
--- NOTE | ~2022-09-16 | CT_ITS ---
CT of the Abdomen and Pelvis: Indication: Jaundice, abdominal pain, prior history of liver transplant Technique: 2.5 mm axial scans were obtained through the abdomen and pelvis following intravenous adm inistration of 100 cc of Omnipaque 350. Dose reduction technique was used on this scan by utilizing a utomated exposure control and iterative reconstruction technique. The dose-length product (DLP) was 6 61.40 mGy-cm. COMPARISON: 08/26/2022 Findings: Scans through the lung bases are unremarkable. There is mild periportal edema. The liver, spleen, pancreas, adrenals and kidneys are otherwise withi n normal limits. Gallbladder is absent. There are atherosclerotic calcifications of the aorta. No ly mphadenopathy. No bowel obstruction or bowel wall thickening. There is no evidence to suggest acute appendicitis. Images through the pelvis were performed. Urinary bladder unremarkable. Prostate gland and seminal ve sicles are unremarkable. No ascites. Impression: No significant change from prior exam. Persistent periportal edema, a nonspecific finding. Reviewed, dictated and finalized at location . Impression: No significant change from prior exam. Persistent periportal edema, a nonspecif ic finding.
--- NOTE | 2022-09-16 19:21 | ECG_ITS ---
Measurements Intervals [place] Rate: 78 P: 44 MO: 146 QRS: 51 QRSD: 102 T: 59 QT: 429 QTc: 489 Interpretive Statements SINUS RHYTHM PROLONGED QT INTERVAL ABNORMAL ECG COMPARED TO ECG 08/26/2022 14:55:57 PROLONGED QT INTERVAL NOW PRESENT Electronically Signed On 09-18-2022 9:23:15 CDT by Johnathan Galindo M.D.
[2022-09-16] MEDS: SODIUM CHLORIDE 0.9% IV 1,000 ML 999 ML IV CONT (19:38)
[2022-09-16 19:49] LABS: Appearance Urine Clear (Clear); Bilirubin Urine Negative (Negative); Blood Urine Negative (Negative); Color Urine Yellow (Yellow); Glucose Urine UA Negative (Negative); Hematocrit 34.8 % (37.0-46.0); Hemoglobin 12.2 g/dL (12.4-15.3); Immature Platelet Fraction Pct 3.3 % (1.0-7.0); Ketones Urine Negative (Negative); Leukocyte Esterase Ur Negative LEU/UL (Negative); Mean Corpuscular HGB Conc 35.1 g/dL (32.0-36.0); Mean Corpuscular Hemoglobin 31.4 pg (27.0-31.0); Mean Corpuscular Volume 89.5 fL (78.0-102.0); Mean Platelet Volume 10.5 fl (8.7-11.0); Nitrate Urine Negative (Negative); Platelet Count Result 77 K/mm3 (150-420); Protein Urine Negative (Negative); Red Blood Count 3.89 M/mm3 (4.70-6.10); Red Cell Distribution Width 26.8 % (11.6-14.4); White Blood Count 9.2 K/mm3 (4.8-10.8)
[2022-09-16 19:52] LABS: Add Urine Microscopic? NO
[2022-09-16 20:03] LABS: Partial Thromboplastin Time 24.4 SEC (23.90-30.70); Prothrombin Time 10.5 Seconds (9.50-12.10)
[2022-09-16 20:10] LABS: Lactic Acid Reflex 1.1 mmol/L (0.4-2.0)
[2022-09-16 20:12] LABS: Alanine Aminotransferase 243 U/L (16-63); Albumin Level 2.2 g/dL (3.4-5.0); Alkaline Phosphatase 322 U/L (46-116); Anion Gap 7 mmol/L (8-16); Aspartate Amino Transferase 111 U/L (15-37); Blood Urea Nitrogen 39 mg/dL (7-18); CRP 3.6 mg/dL (0.0-0.9); Carbon Dioxide 27 mmol/L (21-32); Chloride 103 mmol/L (98-108); Estimated CRCL calculation 39 ml/min; Estimated Glomerular Filt Rate 41; Glucose 210 mg/dL (70-99); Lipase 46 U/L (16-77); NT Pro B Type Natriuretic Pept 190 pg/mL (0-125); Osmolality Calculated 299 mOsm/kg (285-295); Potassium 3.8 mmol/L (3.5-5.1); Sodium 137 mmol/L (136-145); Total Protein 5.3 g/dL (6.4-8.2)
[2022-09-16 20:18] LABS: Ammonia 49 umol/L (11-32)
[2022-09-16 20:18] LABS: Neutrophils Percent Manual 92 % (46-73); Total Cells Counted 100
[2022-09-16 20:19] LABS: Anisocytosis 1+ (NORMAL); Band Neutrophils Percent 1 % (0-6); Lymphocytes Absolute Manual 0.27 K/mm3 (1.1-4.5); Lymphocytes Percent Manual 3 % (18-44); Monocytes Absolute Manual 0.36 K/mm3 (0.1-0.90); Monocytes Percent Manual 4 % (3-9); Neutrophils Absolute Manual 8.55 K/mm3 (1.3-6.7); Platelet Estimate Decreased (Adequate); Schistocytes None Seen (NORMAL); Target Cells 3+ (NORMAL)
--- NOTE | 2022-09-16 20:57 | ED.GENADULT ---
HPI - General Adult General Chief complaint: Unspecified Stated complaint: swollen legs; weakness Source: patient and family Mode of arrival: wheelchair Limitations: physical limitation History of Present Illness HPI narrative: this is a 67-year-old gentleman with a history of alcoholic liver disease recently discharged approximately 2 weeks ago from [facility] patient here this evening with some left leg pain lower extremity was warm and tender has this chronic issue, there is no calf pain or tenderness no fever chills vitals are stable the patient denies any chest pain no shortness of breath no abdominal pain no flank pain no fever chills. The patient denies any headaches no blurry vision. Family states the patient has been confused earlier today but during assessment here in the ER the patient is alert oriented knows where he is located knows the date and the month and the year. Onset (ago): day(s) Related Data Home Medications Medication Instructions Recorded Confirmed budesonide-formoterol HFA 160 1 inh inhalation DAILY 09/15/21 09/16/22 mcg-4.5 mcg/actuation aerosol inhaler (Symbicort) duloxetine 60 mg capsule,delayed 1 cap PO DAILY 09/15/21 09/16/22 release finasteride 5 mg tablet 1 tablet PO DAILY 09/15/21 09/16/22 fluticasone propionate 50 1 ea intranasal DAILY 09/15/21 09/16/22 mcg/actuation nasal spray,suspension hydrocodone 5 mg-acetaminophen 325 1 tablet PO Q6-8H 09/15/21 09/16/22 mg tablet ondansetron HCl 8 mg tablet 1 tablet PO BID 09/15/21 09/16/22 sertraline 50 mg tablet 1 tablet PO DAILY 09/15/21 09/16/22 tacrolimus 1 mg capsule, 1 cap PO TID 09/15/21 09/16/22 immediate-release tamsulosin 0.4 mg capsule 1 cap PO HS 09/15/21 09/16/22 trazodone 150 mg tablet 1 tablet PO DAILY 09/15/21 09/16/22 amlodipine 10 mg tablet 10 mg PO DAILY 08/27/22 09/16/22 cyclobenzaprine 5 mg tablet 5 mg PO TID PRN Muscle Pain 08/27/22 09/16/22 furosemide 40 mg tablet 40 mg PO DAILY 08/27/22 09/16/22 gabapentin 800 mg tablet 800 mg PO DAILY 08/27/22 09/16/22 melatonin 3 mg capsule 3 mg PO HS PRN Insomnia 08/27/22 09/16/22 montelukast 10 mg tablet 10 mg PO DAILY 08/27/22 09/16/22 pantoprazole 40 mg tablet,delayed 40 mg PO QAM 08/27/22 09/16/22 release Allergies Allergy/AdvReac Type Severity Reaction Status Date / Time No Known Allergies Allergy Verified 08/26/22 14:55 Review of Systems Review of Systems: All systems reviewed & are unremarkable except as noted in HPI and below PMFSH Past Medical History Medical History Anxiety and depression BPH (benign prostatic hyperplasia) COPD (chronic obstructive pulmonary disease) Insomnia Social History Social History Smoking status: Current every day smoker Tobacco type: cigarettes Alcohol intake: former Substance use: never Substance use type: does not use Gender identity (if verbalized by the patient): Male Sexual Orientation (if Verbalized by the Patient): Straight or Heterosexual Spiritual care concerns: No Exam Const: General: cooperative and no acute distress HENMT: Head: normal to inspection Ears: hearing grossly normal bilaterally Face/Nose/Sinus: Normal external nose present Face and sinus: normal facial exam Mouth: Yes Normal oral and palatal mucosa present Eyes: General: appearance normal, both eyes and all related structures Neck: Neck: normal visual inspection, full ROM and no lymphadenopathy Chest: Chest palpation & inspection: normal inspection of the chest Resp: Effort & Inspection: normal respiratory effort and able to speak in complete sentences Auscultation: clear to auscultation bilaterally Cardio: Jugular venous distension: no JVD Palpation: normal PMI Rate: regular rate Rhythm: regular rhythm GI: Inspection: normal to inspection Auscultation: normal bowel sounds : General: Yes bimanu
[2022-09-16] MEDS: MORPHINE SULFATE (*CRX) 2 MG/ML INJ IV PUSH (21:04)
[2022-09-16] MEDS: cefTRIAXone 1 GM, LIDOCAINE HCL 1% LOCAL INJ 2.1 ML IM (21:05)
== END 2022-09-16 21:27 | disposition home or self-care (01) ==
PROVIDERS: Emergency Provider Emergency Medicine; PCP Family Medicine
DX: K70.10 Alcoholic hepatitis without ascites (principal); L03.116 Cellulitis of left lower limb; J44.9 Chronic obstructive pulmonary disease, unspecified; F17.210 Nicotine dependence, cigarettes, uncomplicated; Z79.891 Long term (current) use of opiate analgesic
CPT/HCPCS: 36415; 74177; 80053; 81003; 82140; 83605; 83690; 83880; 85025; 85055; 85610; 85730; 86140; 93005; 96361; 96372; 96374; 99284; J0696; J2270; J7030; Q9967

== ENCOUNTER 2024-11-02 21:34 | Emergency (ER) | payer MEDICARE, MEDICAID, SELFPAY ==
--- NOTE | ~2024-11-02 | XR_ITS ---
[XR ribs RT 2V w CXR 2V ] INDICATION: Right rib pain TECHNIQUE: Frontal projection of the upper right ribs, frontal projection of the lower right ribs, ob lique projection of all the right ribs, frontal inspiratory chest x-ray for interpretation. FINDINGS: There are no displaced rib fractures identified. There are no soft tissue abnormality see n. The lungs are clear. There is thoracic and upper lumbar spondylosis. IMPRESSION: 1:No acute displaced rib fractures. Reviewed, dictated and finalized at location A.
[2024-11-02 21:34] VITALS: BP 148/85; PULSE 91; RESP 18; TEMP 37.3; O2SAT 96
--- OUTSIDE RECORDS SUMMARY | 2024-11-02 21:40 | XMS_ITS | Encounter Summary ---
Author Organization [facility] Address [address] [place] [address] Care Team Providers Care Alum Plant Supervisor Name Role Phone Wang Rebollar MD Primary Care Provider [phone] Pooja Navas RN Unavailable Unavailable Reason for Visit * Reason Onset Date Comments Reschedule Appointment 09/13/2023 Encounter Details Date Type Department Care Team (Late st Contact Info) Description 09/13/2023 Telephone [facility] - Dermatology [address] [facility], [facility] [place] [address] [place] [address] [facility] [address] [place] [address] Reschedule Appointment Social History Tobacco Use Types Packs/Day Years Used Date Smoking Tobacco: Every Day Cigarettes Last attempted to quit: 04/16/1979 Smokeless Tobacco: Never Alcohol Use Standard Drinks/Week Comments Yes 4 (1 standard drink = 0.6 oz pure alcohol) formerly 30 beer/day. quit 08/27 3-4 every other week----stated does not drink 09/21 AUDIT-C Answer Date Recorded Q1: How often do you have a drink containing alcohol? Never 09/21/2022 Q2: How many drinks containi ng alcohol do you have on a typical day when you are drinking? Patient does not drink Q3: How often do you have si x or more drinks on one occasion? Never 09/21/2022 Overall Financial Resource Strain (CARDIA) Answe r Date Recorded How hard is it for you to pa y for the very basics like food, housing, medical care, and heating? Not very hard 09/21/2022 [facility] [place] of Occupat ional Health - Occupational Stress Questionnaire Answer Date Recorded Do you feel stress - tense, restless, nervous, or anxious, or unable to sleep at night because your mind is troubled all the time - these days? Not at all 09/21/2022 Hunger Vital Sign Answer Date Recorded Within the past 12 months, y ou worried that your food would run out before you got the money to buy more. Never true 09/22/19 23 Within the past 12 months, t he food you bought just didn't last and you didn't have money to get more. Never true 09/21/2022 PRAPARE - Transportation Answer Date Re corded In the past 12 months, has l ack of transportation kept you from medical appointments or from getting medications? No 11/2022 In the past 12 months, has l ack of transportation kept you from meetings, work, or from getting things needed for daily living? No 09/21/2022 Housing Stability Vital Sign Answer Sami e Recorded In the last 12 months, was t here a time when you were not able to pay the mortgage or rent on time? No 09/21/2022 In the last 12 months, how many places have you lived? 1 09/21/2022 In the last 12 months, was t here a time when you did not have a steady place to sleep or slept in a half-way (including now)? No 09/21/2022 Sex and Gender Information Value Date Recorded Sex Assigned at Not on file Legal Sex Male 2:29 PM HYPERBARIC TECHNICIAN Gender Identity Not on file Sexual Orientation Not on file documented as of this encounter Functional Status * Is person deaf or have serious hearing difficulty? Answer Date of Assessment Author No 09/21/2022 11:37 PM CDJavier Middleton RN * Is person blind or have serious difficulty seeing? Answer Date of Assessment Author No 09/21/2022 11:37 PM DAYSIT Javier Fall RN * Does person have serious difficulty walking/climbing stairs? Answer Date of Assessment Author Yes 09/21/2022 11:37 PM CDT Javier Fall RN * Does person have difficulty dressing/bathing? Answer Date of Assessment Author Yes 09/21/2022 11:37 PM CDT Javier Fall RN * Does person have difficulty doing errands alone? Answer Date of Assessment Author Yes 09/21/2022 11:37 PM CDT Javier Fall RN documented as of this encounter Mental Status * Does person have difficulty concentrating/remembering/making decisions? Answer Entry Date Author No 09/21/2022 11:37 PM CDT Javier Fall RN documented in this encounter Miscellaneous Notes * Telephone Encounter - Filipe Roberto - 09/13/2023 12:07 PM CDT Patient reports complete resolution of skin problems and wanted to cancel his appt. * Telephone Encounter - Faviola Stover - 09/13/2023 8:11 AM CDT Pt called stating he needs to change his appt with the dr. documented in this encounter Plan of Treatment Not on file documented as of this encounter Goals Goal Patient Goal Type Associated Problems Recent Progress Patient-Stated? Author Medication Management General On track( 024 10:38 AM CDT) No Grace Caicedo RN Note: Expected end date: ongoing Interventions: Take all medications as prescribed Let your doctor know right away about any changes in your medications Make sure to request a refill of your medication at least one week prior to your last dose documented as of this encounter Visit Diagnoses Not on filedocumented in this encounter Additional Health Concerns Infection Onset Date Last Indicated Resolved Time CDIFF Under Investigation 10/14/2023 10/14/2023 10:27 PM CDT CDIFF Under Investigation 01/03/2024 01/03/2024 12:50 AM CDT ESBL GNR 01/03/2024 01/03/2024 COVID-19 Under Investigation 04/27/2024 04/27/2024 04/27/2024 4:13 PM HYPERBARIC TECHNICIAN COVID-19 Under Investigation 04/27/2024 04/27/2024 04/27/2024 9:36 PM HYPERBARIC TECHNICIAN documented as of this encounter Care Teams Alum Plant Supervisor Relationship Specialty Start Date End Date Wang Rebollar MD [address] [place] [phone] PCP - General Family Medicine 04/11/16 Pooja Navas, KIMBERLEE Registered Nurse 02/14/19 documented as of this encounter
--- OUTSIDE RECORDS SUMMARY | 2024-11-02 21:40 | XMS_ITS ---
Author Organization [facility] Address [address] [place] [place] [address] Care Team Providers Care Metal Filer Name Role Phone Wang Rebollar MD Primary Care Provider [phone] Pooja Navas RN Unavailable Unavailable Transplant Episode Liver Candidate [facility] ([place], [place]) - [facility] Evaluation began on 07/13/2015 Marked as Ineligible on 08/23/2015 Reason: Patient Choice Liver CoordinatorDana Lara Phone: N/A Fax: N/A Email: N/A Scores Score Value Updated Expires Exceptions/[place] sons CPRA Not available UNOS MELD Not available MELD (Calc) 10 04/28/2024 [place] Organ Diagnosis Organ Primary Contributory Liver Alcoholic Cirrhosis Care Team Name Role Phone Fax Email Dana Lara Liver Coordinator N/A N/A N/ A Naty Solorzano MD Referring Physician [phone] N/A Events Pre-Transplant Referred: 07/05/2015 Evaluation began: 07/13/2015
--- OUTSIDE RECORDS SUMMARY | 2024-11-02 21:40 | XMS_ITS | Encounter Summary ---
Author Organization [facility] Address [address] [place] [address] Care Team Providers Care Cheese Maker Name Role Phone Wang Rebollar MD Primary Care Provider Malvin Drummond MD Unavailable [phone] Encounter Details Date Type Department Care Team (Latest Contact Info) Description 11/29/2023 [facility] Message Enc [facility] Cardiovascular Care Unit [address] [place], [place] [address] [place], [facility] Provider discharge follow up call Social History Tobacco Use Types Packs/Day Years Used Date Smoking Tobacco: Every Day Cigarettes 0.5 5.5 Started: 2019 Smokeless Tobacco: Never Alcohol Use Standard Drinks/Week Comments Not Currently 0 (1 standard drink = 0.6 oz pur e alcohol) [facility] Utilities Answer Date Recorded In the past 12 months has e [employer], gas, oil, or water [employer] threatened to shut off services in your home? No 11/25/2023 Humiliation, Afraid, Rape, and Kick questionnair e Answer Date Recorded Within the last year, have y ou been afraid of your partner or ex-partner? No 11/25/2023 Within the last year, have y ou been humiliated or emotionally abused in other ways by your partner or ex-partner? No Within the last year, have y ou been kicked, hit, slapped, or otherwise physically hurt by your partner or ex-partner? No 11/25/2023 Within the last year, have y ou been raped or forced to have any kind of sexual activity by your partner or ex-partner? No 11/25/2023 Social Connection and Isolation Panel [NHANES] A nswer Date Recorded In a typical week, how many times do you talk on the phone with family, friends, or neighbors? Twice a week 04/12/2023 How often do you get together with friends or re latives? Once a week 04/12/2023 How often do you attend zoroastrian or orthodox serv ices? Never 04/12/2023 Do you belong to any clubs o r organizations such as zoroastrian groups, unions, fraternal or athletic groups, or school groups? No 04/12/2023 How often do you attend meet ings of the clubs or organizations you belong to? Never 04/12/2023 Are you , , di vorced, , never , or living with a partner? 04/12/2023 AUDIT-C Answer Date Recorded Q1: How often do you have a drink containing alcohol? Never 04/12/2023 Q2: How many drinks containi ng alcohol do you have on a typical day when you are drinking? Patient does not drink Q3: How often do you have si x or more drinks on one occasion? Never 04/12/2023 Overall Financial Resource Strain (CARDIA) Answe r Date Recorded How hard is it for you to pa y for the very basics like food, housing, medical care, and heating? Not hard at all 11/25/2023 PHQ-2 Answer Date Recorded Patient Health Questionnaire-2 Score 0 04/12/2023 [facility] [place] of Occupat ional Health - Occupational Stress Questionnaire Answer Date Recorded Do you feel stress - tense, restless, nervous, or anxious, or unable to sleep at night because your mind is troubled all the time - these days? To some extent 04/12/2023 Exercise Vital Sign Answer Date Recorde d On average, how many days pe r week do you engage in moderate to strenuous exercise (like a brisk walk)? 0 days 04/12/2023 On average, how many minutes do you engage in exercise at this level? 0 min 04/12/2023 Hunger Vital Sign Answer Date Recorded Within the past 12 months, y ou worried that your food would run out before you got the money to buy more. Never true 11/25/19 24 Within the past 12 months, t he food you bought just didn't last and you didn't have money to get more. Never true 11/25/2023 PRAPARE - Transportation Answer Date Re corded In the past 12 months, has l ack of transportation kept you from medical appointments or from getting medications? No 11/14 In the past 12 months, has l ack of transportation kept you from meetings, work, or from getting things needed for daily living? No 11/25/2023 Housing Stability Vital Sign Answer Sami e Recorded In the last 12 months, was t here a time when you were not able to pay the mortgage or rent on time? No 04/17/2023 In the last 12 months, how many places have you lived? 1 04/17/2023 In the last 12 months, was t here a time when you did not have a steady place to sleep or slept in a halfway (including now)? No 04/17/2023 Housing Stability Vital Sign Answer Sami e Recorded In the last 12 months, was t here a time when you were not able to pay the mortgage or rent on time? No 11/25/2023 In the past 12 months, how m any times have you moved where you were living? 1 11/25/2023 At any time in the past 12 m [facility], were you homeless or living in a halfway (including now)? No 11/25/2023 Sex and Gender Information Value Date Recorded Sex Assigned at Male 06/07/2022 7:45 PM IRRIGATION EQUIPMENT INSTALLER Legal Sex Male 5:07 PM CDT Gender Identity Male 06/07/2022 7:45 PM IRRIGATION EQUIPMENT INSTALLER Sexual Orientation Choose not to disclose 2022 7:45 PM IRRIGATION EQUIPMENT INSTALLER documented as of this encounter Functional Status * Are you deaf or do you have serious difficulty hearing Answer Date of Assessment Author Status No 11/25/2023 12:48 PM CDT Jacqui Young S, Tyree N Active * Are you blind or do you have serious difficulty seeing, even when wearing glasses? Answer Date of Assessment Author Status No 11/25/2023 12:48 PM CDT Jacqui Young R N Active * Do you have serious difficulty walking or climbing stairs? Answer Date of Assessment Author Status Yes 11/25/2023 12:48 PM CDT Jacqui Young R N Active * Do you have difficulty dressing or bathing? Answer Date of Assessment Author Status Yes 11/25/2023 12:48 PM CDT Jacqui Young R N Active * Because of a physical, mental, or emotional condition, do you have difficulty doing errands alone such as visiting a doctor's office or shopping? Answer Date of Assessment Author Status Yes 11/25/2023 12:48 PM CDT Jacqui Young R N Active documented as of this encounter Mental Status * Because of a physical, mental, or emotional condition, do you have serious difficulty concentrating, remembering, or making decisions? Answer Entry Date Author Status No 11/25/2023 12:48 PM CDT Jacqui Young R N Active documented in this encounter Plan of Treatment Not on file documented as of this encounter Goals Goal Patient Goal Type Associated Problems Recent Progress Patient-Stated? Author Patient will return to prior living situation and remain independent in ADLs upon discharge from hospital Lifestyle No Arin Winter RN documented as of this encounter Visit Diagnoses Not on filedocumented in this encounter Additional Health Concerns Infection Onset Date Last Indicated Resolved Time COVID-19 Rule Out 12/12/2023 12/12/2023 12/12/2023 6:43 PM CDT COVID-19 Rule Out 12/31/2023 12/31/2023 12/31/2023 10:22 AM CDT ESBL - Extended Spectrum Beta-lactamase 12/31/2023 12/31/2023 COVID-19 Rule Out 04/26/2024 04/26/2024 04/26/2024 10:20 PM IRRIGATION EQUIPMENT INSTALLER COVID-19 Rule Out 05/08/2024 05/08/2024 05/08/2024 1:21 PM IRRIGATION EQUIPMENT INSTALLER COVID-19 Rule Out 06/05/2024 06/05/2024 06/05/2024 1:17 AM IRRIGATION EQUIPMENT INSTALLER documented as of this encounter Care Teams Cheese Maker Relationship Specialty Start Date End Date Wang Rebollar MD [address] [place] [phone] PCP - General FAMILY PRACTICE 05/29/18 Malvin Drummond MD [address] [facility] [address] [place] [address] Physician INTERVENTIONAL CARDIOLOGY 12/10/23 documented as of this encounter
--- OUTSIDE RECORDS SUMMARY | 2024-11-02 21:40 | XMS_ITS | Encounter Summary ---
Author Organization [facility] Address [address] [place] [address] Care Team Providers Care Resilient Tile Installer Name Role Phone Wang Rebollar MD Primary Care Provider [phone] Sylwia Lynn RN Unavailable Unavailable Pooja Navas RN Unavailable Unavailable Reason for Visit * Reason Comments Refill Request Encounter Details Date Type Department Care Team (Late st Contact Info) Description 07/23/2017 Refill [facility] [address] [facility] [place] [phone] Will Pollard MD [address] [facility] [place] [address] Refill Request Social History Tobacco Use Types Packs/Day Years Used Date Smoking Tobacco: Never Assessed Sex and Gender Information Value Date Recorded Sex Assigned at Not on file Legal Sex Male 2:29 PM SERVICE CENTER ASSISTANT Gender Identity Not on file Sexual Orientation Not on file documented as of this encounter Plan of Treatment Not on file documented as of this encounter Visit Diagnoses Not on filedocumented in this encounter Additional Health Concerns Infection Onset Date Last Indicated Resolved Time CDIFF Under Investigation 10/14/2023 10/14/2023 10:27 PM CDT CDIFF Under Investigation 01/03/2024 01/03/2024 12:50 AM CDT ESBL GNR 01/03/2024 01/03/2024 COVID-19 Under Investigation 04/27/2024 04/27/2024 04/27/2024 4:13 PM SERVICE CENTER ASSISTANT COVID-19 Under Investigation 04/27/2024 04/27/2024 04/27/2024 9:36 PM SERVICE CENTER ASSISTANT documented as of this encounter Care Teams Resilient Tile Installer Relationship Specialty Start Date End Date Wang Rebollar MD [address] [place] [phone] PCP - General Family Medicine 04/11/16 Sylwia Lynn, RN Registered Nurse 08/09/17 02/13/19 Pooja Navas, RN Registered Nurse 02/14/19 documented as of this encounter
--- OUTSIDE RECORDS SUMMARY | 2024-11-02 21:40 | XMS_ITS | Encounter Summary ---
Author Organization [facility] Address [address] [place] [address] Care Team Providers Care Buggy Driver Name Role Phone Wang Rebollar MD Primary Care Provider Malvin Drummond MD Unavailable [phone] Encounter Details Date Type Department Care Team (Late st Contact Info) Description 11/29/2023 Hospital Follow-up Call [facility] Cardiovascular Care Unit [address] [place] [address] Cami Cook, RN Social History Tobacco Use Types Packs/Day Years Used Date Smoking Tobacco: Every Day Cigarettes 0.5 5.5 Started: 2020 Smokeless Tobacco: Never Alcohol Use Standard Drinks/Week Comments Not Currently 0 (1 standard drink = 0.6 oz pur e alcohol) [facility] Utilities Answer Date Recorded In the past 12 months has e [employer], gas, oil, or water [employer] threatened to shut off services in your [...] week 04/12/2023 How often do you attend temple or latter day serv ices? Never 04/12/2023 Do you belong to any clubs o r organizations such as temple groups, unions, fraternal or athletic groups, or [...] Recorded Patient Health Questionnaire-2 Score 0 04/12/2023 [facility] of Occupat ional Health - Occupational Stress [...] place to sleep or slept in a intermediate (including now)? No 04/17/2023 Housing Stability Vital Sign Answer Sami e Recorded In the last 12 months, was t here a time when you were not able to pay the mortgage or rent on time? No 11/25/2023 In the past 12 months, how m any times have you moved where you were living? 1 11/25/2023 At any time in the past 12 m [facility], were you homeless or living in a intermediate (including now)? No 11/25/2023 Sex and Gender Information Value Date Recorded Sex Assigned at Male 06/07/2022 7:45 PM ARCHITECT NAVAL Legal Sex Male 5:07 PM CDT Gender Identity Male 06/07/2022 7:45 PM ARCHITECT NAVAL Sexual Orientation Choose not to disclose 2022 7:45 PM ARCHITECT NAVAL documented as of this encounter Functional Status [...] Status Yes 11/25/2023 12:48 PM CDT Jacqui Young, R N Active documented as of this [...] Rule Out 04/26/2024 04/26/2024 04/26/2024 10:20 PM ARCHITECT NAVAL COVID-19 Rule Out 05/08/2024 05/08/2024 05/08/2024 1:21 PM ARCHITECT NAVAL COVID-19 Rule Out 06/05/2024 06/05/2024 06/05/2024 1:17 AM ARCHITECT NAVAL documented as of this encounter Care Teams Buggy Driver Relationship Specialty Start Date End Date Wang Rebollar MD [address] [place] [phone] PCP - General FAMILY PRACTICE 05/29/18 Malvin Drummond MD [address] [facility] [address] [place] [address] Physician INTERVENTIONAL CARDIOLOGY 12/10/23 documented as of this encounter
--- OUTSIDE RECORDS SUMMARY | 2024-11-02 21:40 | XMS_ITS | Encounter Summary ---
Author Organization [facility] Address [facility] [place] [address] Care Team Providers Care Staff Development Coordinator Rn Name Role Phone Wang Rebollar MD Primary Care Provider [phone] Malvin Drummond MD Unavailable [phone] Encounter Details Date Type Department Care Team (Late st Contact Info) Description 09/21/2018 Abstract SFL CONVERSION [address] [place] [address] , Generic Conversion, Social History Tobacco Use Types Packs/Day Years Used Date Smoking Tobacco: Former Smokeless Tobacco: Never Alcohol Use Standard Drinks/Week Comments No 0 (1 standard drink = 0.6 oz pur e alcohol) AUDIT-C Answer Date Recorded Frequency of Alcohol Consumption Never 06/13/2018 Average Number of Drinks Not on file 019 Frequency of Binge Drinking Not on file 05/18 Sex and Gender Information Value Date Recorded Sex Assigned at Male 06/07/2022 7:45 PM [employer] Legal Sex Male 5:07 PM CDT Gender Identity Male 06/07/2022 7:45 PM [employer] [facility] Sexual Orientation Choose not to disclose 2022 7:45 PM [employer] [facility] documented as of this encounter Plan of Treatment Not on file documented as of this encounter Visit Diagnoses Not on filedocumented in this encounter Additional Health Concerns Infection Onset Date Last Indicated Resolved Time COVID-19 Rule Out 03/23/2021 03/23/2021 03/23/2021 11:21 PM [employer] COVID-19 Rule Out 06/07/2022 06/07/2022 06/07/2022 4:34 PM [employer] COVID-19 Rule Out 04/12/2023 04/12/2023 04/12/2023 4:38 PM [employer] Influenza - Seasonal 04/12/2023 04/17/2023 024 12:32 AM [employer] COVID-19 Rule Out 04/17/2023 04/17/2023 04/17/2023 10:03 AM [employer] COVID-19 Rule Out 04/17/2023 04/17/2023 04/18/2023 1:08 PM [employer] COVID-19 Rule Out 12/12/2023 12/12/2023 12/12/2023 6:43 PM CDT COVID-19 Rule Out 12/31/2023 12/31/2023 12/31/2023 10:22 AM CDT ESBL - Extended Spectrum Beta-lactamase 12/31/2023 12/31/2023 COVID-19 Rule Out 04/26/2024 04/26/2024 04/26/2024 10:20 PM [employer] COVID-19 Rule Out 05/08/2024 05/08/2024 05/08/2024 1:21 PM [employer] COVID-19 Rule Out 06/05/2024 06/05/2024 06/05/2024 1:17 AM [employer] documented as of this encounter Care Teams Staff Development Coordinator Rn Relationship Specialty Start Date End Date Wang Rebollar MD [address] [place] [address] [phone] PCP - General FAMILY PRACTICE 05/29/18 Malvin Drummond MD [address] [place] [address] [address] Physician INTERVENTIONAL CARDIOLOGY 12/10/23 documented as of this encounter
--- OUTSIDE RECORDS SUMMARY | 2024-11-02 21:40 | XMS_ITS ---
Author Organization [facility] Address [address] [place] [address] Care Team Providers Care Flight Reservations Manager Name Role Phone Wang Rebollar MD Primary Care Provider [phone] Pooja Navas RN Unavailable Unavailable Transplant Episode Liver Recipient [facility] ([place], [place]) - [facility] Organ Received: Liver Transplanted on 02/08/2016 Marked as Active Follow-up on 02/08/2016 Liver CoordinatorPooja Navas RN Phone: N/A Fax: N/A Email: N/A [place] Organ Diagnosis Organ Primary Contributory Liver Alcoholic Cirrhosis Rejection History Noted Survival Rejection Treatment Biopsy Resolved 09/01/2022 6 years 6 months Liver transplan t rejection (HCC) Donor Information Organ ABO Source Meets Risk Criteria HLA Match Mismatches Cross Match Liver Transplanted A1 DBD Yes A: B: DR: Liver Donor Serology Results Anti-CMV CMV IgG: Positive EBV IgG EBV VCA IgM: Positive Anti-HBcAb HBC Total: Negative HBsAg HBsAg: Negative HBV DNA No results on file Anti-HCV HCV: Negative Anti-HIV I/II HIV-1: Negative Anti-HTLV I/II HTLV: Not Done RPR/VDRL RPR: Negative EBV IgM EBV VCA IgM: Positive HBsAb No results on file Toxoplasma No results on file SARS CoV-2 No results on file Care Team Name Role Phone Fax Email Pooja Navas RN Liver Coordinator N/A N/A N/A Jean Murillo MD Referring Physician [phone] N/A Will Pollard MD Transplant Surgeon [phone] N/A Events Post-Transplant Pre-Transplant Admitted: 02/08/2016 Referred: 01/21/2016 Transplanted: 02/08/2016 Evaluation began: 6 Discharged: 02/18/2016 Center waitlisted: 6
[2024-11-02] MEDS: IPRATROPIUM 0.5 MG/ALBUTEROL SULFATE 2.5 MG AMPUL.NEB 3 ML INHALATION (21:41)
--- OUTSIDE RECORDS SUMMARY | 2024-11-02 21:41 | XMS_ITS | Clinical Summary ---
Author Organization [facility] [employer] Address [address] [place] [place] [address] Care Team Providers Care Store Receiving Clerk Name Role Phone Wang Rebollar MD Primary Care Provider [phone] Pooja Navas RN Unavailable Unavailable Source Comments [facility] [employer],non-owned Affiliates and Associated Physician Practices is amultiple site organization consisting of ambulatory clinics and hospital sitesin [place], [place], [place] and [place]. This disclosure is being madepursuant to the Care Everywhere program and may not contain all information available regarding this patient. Last updated 18.[facility] [employer] Allergies Active Allergy Reactions Criticality Noted Date Comments Live Vaccines (Immunodeficiency) Other Low 02/11/2016 Patient is immunocompromised and should not receive Live Vaccines Medications * Be aware that medications may not be up to date on this document. Alwaysverify current medications with the patient. traZODone (DESYREL) 150 MG tablet Take 1 (one) tablet by mouth at bedtime Active finasteride (PROSCAR) 5 MG tabletIndications :Lower urinary tract symptoms (LUTS) TAKE 1 TABLET BY MOUTH ONCE DAILY 30 tablet 3 0 Active montelukast (SINGULAIR) 10 MG tabletIndications :Persistent asthma with undetermined severity (HCC) Take 1 (one) tablet by mouth once daily 30 tablet 5 1 Active albuterol HFA (PROVENTIL; VENTOLIN; PROAIR) 108 (90 Base) MCG/ACT inhalerIndication s:Persistent asthma with undetermined severity (HCC) Inhale 2 (two) puffs by mouth once daily as needed 16 g 11 1 Active fluticasone propionate (FLONASE) 50 MCG/ACT nasal sprayIndications: Seasonal allergic rhinitis, unspecified trigger [place] 2 (two) sprays into each nostril once daily 16 g 3 1 Active SYMBICORT 160-4.5 MCG/ACT inhalerIndication s:Persistent asthma with undetermined severity (HCC) INHALE 2 (TWO) PUFFS BY MOUTH 2 TIMES DAILY 10.2 g 11 2 Active tamsulosin (Flomax) 0.4 MG capsuleIndication s:Benign prostatic hyperplasia with lower urinary tract symptoms, symptom details unspecified TAKE 1 CAPSULE BY MOUTH AT BEDTIME 60 capsule 2 3 Active pantoprazole EC (Protonix) 40 MG tablet Take 1 (one) tablet by mouth 2 times daily for 60 days, THEN 1 (one) tablet once daily. 120 tablet 4 02/02/20 25 Active pregabalin (Lyrica) 25 MG capsule Take 1 (one) capsule by mouth 2 times daily 4 Active tiZANidine (Zanaflex) 2 MG tablet Take 1 (one) tablet by mouth at bedtime 4 Active DULoxetine (Cymbalta) 30 MG capsule Take 1 (one) capsule by mouth once daily Active aspirin EC (Ecotrin) 81 MG tablet Take 1 (one) tablet by mouth once daily Active furosemide (Lasix) 40 MG tablet Take 1 (one) tablet by mouth once daily Active HYDROcodone-aceta minophen ([place]ding) 7.5-325 MG tablet Take 1 (one) tablet by mouth every 6 hours as needed for Pain 5 Active benzonatate (Tessalon) 100 MG capsule Take 1 (one) capsule by mouth 3 times daily 5 Active simethicone (Mylicon) 80 MG chew tablet Take 1 (one) tablet by mouth 4 times daily as needed for Gas Pain 5 Active tacrolimus (Prograf) 0.5 MG capsule Take 2 (two) capsules by mouth 2 times daily 120 capsule 11 5 Active Active Problems Problem Noted Date Diagnosed Date Encephalopathy, unspecified type 07/07/2024 Elevated alkaline phosphatase level 04/27/2024 S/P liver transplant 04/27/2024 Abdominal pain, unspecified abdominal location 0 04/27/2024 Acute cough 04/27/2024 Severe protein-calorie malnutrition 01/10/2024 Diarrhea, unspecified type 01/03/2024 Nausea and vomiting, unspecified vomiting type 0 01/03/2024 Acute intractable headache, unspecified headache type 01/03/2024 Chronic deep vein thrombosis (DVT) of calf muscle vein of right lower extremity 01/03/2024 Acute deep vein thrombosis ( DVT) of femoral vein of right lower extremity 12/04/2023 Peptic ulcer 12/04/2023 Esophageal ulcer 12/04/2023 Duodenal ulcer 12/04/2023 Blood per rectum 11/29/2023 Syncope, unspecified syncope type 11/24/2023 Electrolyte abnormality 11/24/2023 Altered mental status, unspe cified altered mental status type 11/09/2023 Syncope and collapse 10/13/2023 History of liver transplant 10/13/2023 JONATHAN (acute kidney injury) 10/13/2023 Actinic keratosis 05/10/2023 History of nonmelanoma skin cancer 05/10/2023 Liver replaced by transplant 10/11/2022 Failure to thrive in adult 09/20/2022 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 08/21/2019 History of ETOH abuse 08/09/2017 Nonalcoholic steatohepatitis (WILLIAM) 08/09/2017 Long-term use of immunosuppressant medication CKD (chronic kidney disease) stage 3, GFR 30-59 ml/min 05/23/2016 Resolved Problems Problem Noted Date Diagnosed Date Resolved Date COPD with acute bronchitis 06/07/2022 10/11/2022 0 01/03/2024 Intractable vomiting with nausea 06/06/2018 09/21/2022 Seasonal allergic rhinitis 02/20/2018 0 09/21/2022 Incisional hernia with obstr uction but no gangrene 09/21/2017 01/03/2024 Abdominal pain, left lower quadrant 08/31/2017 09/21/2022 Pre-transplant evaluation fo r liver transplant 08/09/2017 09/21/2022 Overview (08/09/2017): Diagnosis: EtOH; Referring Global Program Director:Nakul Cano MELD: 30 Blood Type: A pos BMI: 32. Short H/P summary: Evaluation Testing Date and Results: Labs: PSA: A1c: Glucose: Chol: Serologies: CMV: Tox Screen: Alpha 1 Anti: AFP: Ca19-9: Ceruloplasmin: DILLON: Anti Smooth muscle ab: Mitochondrial: Quant Gold-Neg: Tox Screen: RPR: Neg HIV-Neg Radiology: Chest CT 01/16/2016 A moderate right pleural effusion with associated atelectasis and small left pleural effusion with associated atelectasis is present. A calcified granuloma is present in the lingula. The heart size is normal. There is no pericardial effusion. Pano: Abd/Pelvis [address]: The liver is nodular and shrunken consistent with provided history of cirrhosis. Previously described gallbladder wall thickening is not appreciated on this examination performed without intravenous contrast. Soft tissue attenuation within the gallbladder may represent stones and/or sludge. The spleen is upper limits of normal in size measuring 12.5 cm craniocaudally. A moderate amount of ascites is present. The previously visualized hypodense splenic lesions are not seen on this noncontrast examination. The pancreas and adrenal glands appear normal. Other than the unchanged 1 cm right upper pole and 2.3 cm left midpole renal cysts, the kidneys appear normal without hydronephrosis. The small and large bowel are normal in caliber without obstruction. No free intraperitoneal air is identified. No lymphadenopathy is seen. There has been interval enlargement of the inferior right rectus abdominis muscle which measures 3.4 cm AP by 6 cm TV by 6.1 cm CC and likely represents an intramuscular hematoma. Diffuse subcutaneous fat stranding is present, likely secondary to anasarca. The abdominal aorta is normal in course and caliber with mild to moderate atherosclerotic vascular calcification. The urinary bladder is decompressed. The prostate is present. Osseous: No acute osseous abnormalities are seen. Cardiology: Echo: Mild left ventricular hypertrophy (eccentric). No obvious regional wall motion abnormalities. Normal left ventricular ejection fraction estimated at 62 %. Normal left ventricular diastolic function for age. Injection of agitated saline contrast revealed evidence of right to left extracardiac shunt. Mild tricuspid regurgitation. Trivial pulmonic regurgitation. No evidence of endocarditis. A MAE would provide more diagnostic infomration if clinically indicated DSE: Resting wall motion was normal. Rest left ventricular ejection was 65 %. At low dose, wall motion was normal. At peak dose, wall motion was normal. Peak left ventricular ejection fraction was 80 %. 1. No echocardiographic or ECG evidence of myocardial ischemia. 2. Abnormal drop in blood pressure likey secondary to hyperdynamic LV response to pharamacological stress. Cardiac Cath: PFTs: SPIROMETRY: Forced vital capacity is decreased. FEV1 is decreased. FEV1/FVC ratio is normal. There is significant response to bronchodilator administration. The inspection of the patient's flow-volume loops shows small volumes and scooping of the expiratory limbs. LUNG VOLUMES: Lung volumes by body plethysmography show normal TLC and increased RV. DLCO: Diffusing capacity adjusted for Hb and COHb is within normal limits. AIRWAY RESISTANCE: The airway resistance is increased and the specific conductance is decreased but normalize after bronchodilator administration. IMPRESSION: 1. The patient had difficulty performing the procedure. Please see technologist's comments for further details. Consider repeating the study if clinically indicated. 2. Non-specific ventilatory limitation. 3. There is a significant response to bronchodilator administration. 4. Mild air trapping without hyperinflation. 5. The airway resistance is increased and the specific conductance is decreased but both normalize with bronchodilator administration. 6. There is no previous study available for comparison. MD ALYSON Rachel'sResults for ANYA BURCH ( ) as of 01/31/2016 17:34 Ref. Range 01/25/2016 16:15 pH, Arterial Latest Ref Range: 7.35 - 7.45 7.46 (H) pCO2 Arterial Latest Ref Range: 35 - 45 mmHg 37 pO2 Arterial Latest Ref Range: 71 - 95 mmHg 72 HCO3 Arterial Latest Ref Range: 22.0 - 26.0 mmol/L 25.8 TCO2 ARTERIAL Latest Ref Range: 25.0 - 29.0 mmol/L 27.0 Base Excess Arterial Latest Ref Range: -2.0 - 2.0 mmol/L 1.9 HB ARTERIAL Latest Ref Range: 13.5 - 17.5 g/dL 7.7 (L) O2HB ARTERIAL Latest Ref Range: 95.0 - 100.0 % 93.3 (L) Carboxyhemoglobin Latest Ref Range: 0.0 - 3.0 % 0.3 METHB ARTERIAL Latest Ref Range: 0.0 - 2.0 % 0.6 FIO2 ARTERIAL Latest Units: % 21.0 EGD: 01/21/2016 Esophagogastric landmarks were identified: the Z-line was found at 38 cm, the gastroesophageal junction was found at 38 cm and the site of hiatal narrowing was found at 38 cm from the incisors. Severe portal hypertensive gastropathy was found in the entire examined stomach. 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 Coagulation for tissue destruction using argon beam at 0.3 liters/minute and 15 delgado was successful. APC was used to obliterate as many erythematous spots as possible Patchy moderately erythematous mucosa without active bleeding and with no stigmata of bleeding was found in the first part of the duodenum. The 2nd part of the duodenum was normal. Colonoscopy: 12/02/2015 Findings: The perianal and digital rectal examinations were normal. The entire examined colon appeared normal on direct and retroflexion views. Estimated Blood Loss: Estimated blood loss was minimal. Complications: No immediate complications. Impression: - The entire examined colon is normal on direct and retroflexion views. - No specimens collected. Panorex: 09/02/2015 The patient is edentulous. There is no periodontal disease or periapical abscess. The mandible and temporomandibular joints are intact. SW: It is the impression of this social work case manager that Anya Burch has several positive factors for Liver transplant candidacy including knowledge of illness, sufficient insurance coverage, stable financial situation for post transplant needs, no concerns regarding substance abuse, adequate support system, and appropriate discharge plan. RD: BMI = 39.27, Class II Obesity. Pt is a marginal candidate for a Liver Transplant a nutrition standpoint based on weight. Of note, this BMI does not reflect a dry weight rather pt's last actual weight in EPIC. Suggested BMI < 35. Goal weight at current listed height is would be 216 lbs or 27 lb weight loss is needed. Recommendations/Interventions: 1. Wt loss suggested. BMI<35. 2. Pt's family given Cirrhosis Nutrition Therapy handout with RD phone number. 3. Small-frequent meals, No added salt suggested. 4. Ensure prn for poor appetite. Persistent asthma with undetermined severity 6 09/21/2022 Encounters Date Type Department Care Team Description 09/19/2024 Orders Only [facility] - [address] [phone] Margarita Joyce PA-C Liver replaced by transplant (HCC); Long-term use of immunosuppressant medication; Liver transplant rejection (HCC); Alcohol abuse following liver transplant (HCC); Stage 3a chronic kidney disease (HCC) 09/05/2024 Orders Only [facility] - [address] [phone] Margarita Joyce PA-C Liver replaced by transplant (HCC); Long-term use of immunosuppressant medication; Liver transplant rejection (HCC); Alcohol abuse following liver transplant (HCC); Stage 3a chronic kidney disease (HCC) 08/22/2024 Orders Only [facility] - [address] [phone] Margarita Joyce PA-C Liver replaced by transplant (HCC); Long-term use of immunosuppressant medication; Liver transplant rejection (HCC); Alcohol abuse following liver transplant (HCC); Stage 3a chronic kidney disease (HCC) 08/08/2024 Orders Only [facility] - [address] [phone] Margarita Joyce PA-C Liver replaced by transplant (HCC); Long-term use of immunosuppressant medication; Liver transplant rejection (HCC); Alcohol abuse following liver transplant (HCC); Stage 3a chronic kidney disease (HCC) from Last 3 Months Immunizations Immunization Administration Dates Next Due FLU VACCINE TRI IIV3 SPLIT PF IM (FLUVIRIN) 12/16,07/21/2015 HepB Unspecified formulation 01/14/2016 INFLUENZA VACCINE 02/20/2018,01/07/2017 INFLUENZA VACCINE, ADJUVANTE D, QUADR. (FLUAD QUADRIVALENT; 65Y+) (AIIV4) 04/04/2024 INFLUENZA VACCINE, HIGH-DOSE , QUADR. (FLUZONE HIGH-DOSE QUADRIVALENT; 65Y+), 0.7 ML (HD-IIV4) 02/20/2018 INFLUENZA VACCINE, QUADR. (F LUZONE; FLULAVAL; FLUARIX; AFLURIA QUADRIVALENT; 6MO+), 0.5 ML (IIV4) 02/14/2019 PNEUMOCOCCAL PPSV23 12/07/2015 Pneumococcal Pcv13 Conj 02/20/2018 Family History Medical History Relation Name Comments CAD (Coronary Artery Disease) Brother Cancer - Prostate Brother Asthma Neg Hx CVA Neg Hx Cancer - Breast Neg Hx Cancer - Other Neg Hx Cancer - Skin, Melanoma Neg Hx Cancer - Skin, Non Melanoma Neg Hx Eczema Neg Hx Hemophilia Neg Hx Psoriasis Neg Hx Relation Name Status Comments Brother Social History Tobacco Use Types Packs/Day Years Used Date Smoking Tobacco: Former Cigarettes 1 40 0 04/16/1939 - 04/16/1979 Smokeless Tobacco: Never Tobacco Cessation:Counseling Given: Not Answered Alcohol Use Standard Drinks/Week Comments Not Currently 4 (1 standard drink = 0.6 oz pure alcohol) formerly 30 beer/day. quit 08/27 3-4 every other week----stated does not drink 09/21 AUDIT-C Answer Date Recorded Q1: How often do you have a drink containing alcohol? Never 01/04/2024 Q2: How many drinks containi ng alcohol do you have on a typical day when you are drinking? Patient does not drink Q3: How often do you have si x or more drinks on one occasion? Never 01/04/2024 Overall Financial Resource Strain (CARDIA) Answe r Date Recorded How hard is it for you to pa y for the very basics like food, housing, medical care, and heating? Not very hard 01/04/2024 [facility] Occup[facility] ional [facility] - Occupational Stress Questionnaire Answer Date Recorded Do you feel stress - tense, restless, nervous, or anxious, or unable to sleep at night because your mind is troubled all the time - these days? Not at all 01/04/2024 Hunger Vital Sign Answer Date Recorded Within the past 12 months, y ou worried that your food would run out before you got the money to buy more. Never true 01/04/20 24 Within the past 12 months, t he food you bought just didn't last and you didn't have money to get more. Never true 01/04/2024 PRAPARE - Transportation Answer Date Re corded In the past 12 months, has l ack of transportation kept you from medical appointments or from getting medications? No 12/16 In the past 12 months, has l ack of transportation kept you from meetings, work, or from getting things needed for daily living? No 01/04/2024 Housing Stability Vital Sign Answer Sami e Recorded In the last 12 months, was t here a time when you were not able to pay the mortgage or rent on time? No 01/04/2024 In the last 12 months, how many places have you lived? 1 01/04/2024 In the last 12 months, was t here a time when you did not have a steady place to sleep or slept in a correction (including now)? No 01/04/2024 Sex and Gender Information Value Date Recorded Sex Assigned at Not on file Legal Sex Male 2:29 PM GRAVITY MANAGER Gender Identity Not on file Sexual Orientation Not on file Last Filed Vital Signs Vital Sign Reading Time Taken Comments Blood Pressure 119/83 04/28/2024 2:40 PM GRAVITY MANAGER Pulse 92 04/28/2024 2:40 PM GRAVITY MANAGER Temperature 36.5 C (97.7 F) 04/27/2024 1:40 PM GRAVITY MANAGER Respiratory Rate 21 04/28/2024 2:41 PM GRAVITY MANAGER Oxygen Saturation 96% 04/28/2024 2:40 PM GRAVITY MANAGER Inhaled Oxygen Concentration 21% 09/27/2017 5 :15 AM CDT Weight 77.1 kg (170 lb) 04/27/2024 10:52 AM GRAVITY MANAGER Height 167.6 cm (5' 6) 04/27/2024 10:52 AM GRAVITY MANAGER Body Mass Index 27.44 04/27/2024 10:52 AM GRAVITY MANAGER Plan of Treatment Health Maintenance Due Date Last Done Comments COLOGUARD (AGES 45-75) - COLON CA SCREENING 1955 CT COLONOGRAPHY - COLON CA SCREENING 1955 FIT - COLON CA SCREENING 1955 FLEX SIG - COLON CA SCREENING 1955 MEDICARE AWV 12 MONTHS 1955 Opioid Medication Agreement - Annual 1955 COVID-19 VACCINE (#1) 1958 DTAP/TDAP/TD VACCINES (1 - Tdap) 02/14/1972 ZOSTER VACCINE (1 of 2) 02/14/1972 Respiratory Syncytial Virus (RSV) Vaccine Pt: or over 60 yrs (1 - Risk 60-74 years 1-dose series) 2013 HEPATITIS B VACCINE (2 of 3 - 19+ 3-dose series) 02/11/2016 01/14/2016 AAA SCREENING 2018 PNEUMOCOCCAL VACCINE 50+ (3 of 3 - PCV20 or PCV21) 12/06/2020 02/20/2018, 12/07/2015 DEPRESSION SCREENING 04/16/2024 INFLUENZA VACCINE (#1) 2024 4, 01/15/2020, 02/14/2019, Additional history exists SCREENING FOR DIABETES 05/08/2027 5, 05/08/2024, 04/28/2024, Additional history exists LIPID TESTING 11/24/2028 11/25/2023, 11/15, 12/07/2017, Additional history exists COLON MONITORING 01/07/2034 01/08/2024, , 01/07/2024 COLONOSCOPY - COLON CA SCREENING 01/07/2034 01/08/2024, 01/08/2024, 01/07/2024 Colorectal Cancer Screening 01/07/2034 HEPATITIS C SCREENING Completed 08/27/2022 , 06/05/2018, 04/04/2016, Additional history exists HIB VACCINE Aged Out No longer eligi ble based on patient's age to complete this topic HPV VACCINE Aged Out No longer eligi ble based on patient's age to complete this topic MENINGOCOCCAL (Group B) VACCINE SHARED DECISION-MAKING Aged Out No longer eligible based on patient's age to complete this topic MENINGOCOCCAL GROUPS A/C/Y/W VACCINE Aged Out No longer eligible based on patient's age to complete this topic Goals Goal Patient Goal Type Associated Problems Recent Progress Patient-Stated? Author Medication Management General On track( 024 10:38 AM CDT) Grace Cintron, RN Note: Expected end date: ongoing Interventions: Take all medications as prescribed Let your doctor know right away about any changes in your medications Make sure to request a refill of your medication at least one week prior to your last dose Safety General On track( 024 10:38 AM CDT) Pooja Tabares RN Note: Expected end date: ongoing Interventions: Your nurse will assess your risk for falls/injury each visit Use appropriate and safe transfer methods Make sure appropriate safety devices are available and within reach Be aware of medications that could predispose you to falling Wear non-skid/rubber sole footwear Use some light at night in your room Keep walking paths clutter free and clear Maintain an unobstructed path to the bathroom Medical Devices Implanted Type Area [employer]cery Store Courtesy Clerk Device Identifier Shelf Expiration Date Model / Serial / Lot Graft Prcn 7.9x5.9in Xenmatrix Ab Rect Implanted:Qty: 1 on 09/21/2017 by Will Pollard MD at [facility] Left: Abdomen [employer] 08/11/2018 [id number] / / [id number] Procedures Procedure Name Priority Date/Time Associated Diagnosis Comments COMPREHENSIVE METABOLIC PANEL STAT 04/28/2024 6:12 AM GRAVITY MANAGER ENDOSCOPY, COLON, DIAGNOSTIC Routine 01/08/2024 2:15 PM CDT LIPID PROFILE (EXTERAL RESULT ENTRY) Routine 12/12/2022 8:50 AM CDT HEPATITIS SCREEN ACUTE Routine 11:46 PM CDT from Last 3 Months or Most Recently Relevant to Health Maintenance Results * (ABNORMAL) COMPREHENSIVE METABOLIC PANEL (04/28/2024 6:12 AM GRAVITY MANAGER) BUN 11 7 - 26 mg/dL 04/28/2024 6:58 AM [facility] Creatinine 1.06 0.71 - 1.16 mg/dL 04/28/2024 6:58 AM [facility] Sodium 142 136 - 145 mmol/L 04/28/2024 6:58 AM [facility] Potassium 3.6 3.5 - 4.5 mmol/L 04/28/2024 6:58 AM [facility] Chloride 107 98 - 107 mmol/L 04/28/2024 6:58 AM [facility] CO2 28 22 - 29 mmol/L 04/28/2024 6:58 AM [facility] Glucose 89 70 - 99 mg/dL 04/28/2024 6:58 AM [facility] Calcium 7.6(L) 8.4 - 10.2 mg/dL 04/28/2024 6:58 AM [facility] Protein Total 5.3(L) 6.0 - 8.3 g/dL 04/28/2024 6:58 AM [facility] Albumin 1.9(L) 3.4 - 5.0 g/dL 04/28/2024 6:58 AM [facility] Bilirubin Total 0.5 0.2 - 1.2 mg/dL 04/28/2024 6:58 AM [facility] Alkaline Phosphatase 351(H) 40 - 150 U/L 04/28/2024 6:58 AM [facility] ALT 27 5 - 55 U/L 04/28/2024 6:58 AM [facility] AST 63(H) 5 - 34 U/L 04/28/2024 6:58 AM [facility] Anion Gap 7 6 - 16 04/28/2024 6:58 AM [facility] BUN/Creatinine Ratio 10 7 - 23 04/28/2024 6:58 AM [facility] Osmolality Calculated 293 275 - 295 mOsm/kg 04/28/2024 6:58 AM [facility] Albumin/Globulin Ratio 0.6(L) 1.1 - 2.3 04/28/2024 6:58 AM [facility] eGFR by CKD-EPI 75(L) >=90 mL/min/1.7 3 m2 04/28/2024 6:58 AM [facility] Blood BLOOD SPECIMEN / Unknown Venipuncture / Unknown 04/28/2024 6:12 AM GRAVITY MANAGER 04/28/2024 6:25 AM [facility] us Christine Dubois MD LAB - CHEMISTRY ORDERABLES Sondra huang Result [facility] [address] [place] [address], [facility] [phone] * ENDOSCOPY, COLON, DIAGNOSTIC (01/08/2024 2:15 PM CDT) Report Endoscopy POC Endoscopy Department Report _ Patient Name: Anya Burch Procedure Date: 01/08/2024 2:15 PM Date of : 1955 Classification: Inpatient Gender: Male Ethnicity: Not or Race: White _ Providers: Christine Dubois MD Referring MD: Inpatient team Procedure: Colonoscopy Indications: Diarrhea Medications: Monitored Anesthesia Care Description of Procedure: Pre-Anesthesia Assessment: - Prior to the procedure, a History and Physical was performed, and patient medications and allergies were reviewed. The patient's tolerance of previous anesthesia was also reviewed. The risks and benefits of the procedure and the sedation options and risks were discussed with the patient. All questions were answered, and informed consent was obtained. Prior Anticoagulants: The patient has taken Eliquis (apixaban), last dose was 2 days prior to procedure. ASA Grade Assessment: III - A patient with severe systemic disease. After reviewing the risks and benefits, the patient was deemed in satisfactory condition to undergo the procedure. After I obtained informed consent, the scope was passed under direct vision. Throughout the procedure, the patient's blood pressure, pulse, and oxygen saturations were monitored continuously. The Colonoscope was introduced through the anus and advanced to the cecum, identified by the ileocecal valve. The colonoscopy was performed without difficulty. The patient tolerated the procedure well. The quality of the bowel preparation was poor. The ileocecal valve and the rectum were photographed. Findings: A large amount of stool was found in the entire colon, precluding visualization. Scattered moderate inflammation characterized by erythema, friability, erosions and ulcerations was found in the transverse colon and in the cecum (IC valve). Biopsies were taken with a cold forceps for histology. Non-bleeding external and internal hemorrhoids were found. Biopsies for histology were taken with a cold forceps from the ascending colon, transverse colon, and left colon for evaluation of colitis. Estimated Blood Loss: Estimated blood loss was minimal. Complications: No immediate complications. Impression: - Preparation of the colon was poor. - Stool in the entire examined colon. - Scattered moderate inflammation was found in the transverse colon and in the cecum secondary to colitis. Biopsied. - Non-bleeding external and internal hemorrhoids. - Biopsies for histology were taken with a cold forceps from the ascending colon, transverse colon, and left colon for evaluation of colitis. Recommendation: - Return patient to hospital [facility] for ongoing care. - Resume previous diet. - Continue present medications. - Await pathology results. - Remainder per inpatient GI team - Repeat colonoscopy for screening purposes to be discussed with referring provider because the bowel preparation was suboptimal. Attending Participation: I personally performed the entire procedure. Procedure Code(s): --- Professional --- 18121, Colonoscopy, flexible; with biopsy, single or multiple Diagnosis Code(s): --- Professional --- K52.9, Noninfective gastroenteritis and colitis, unspecified R19.7, Diarrhea, unspecified CPT copyright 2021 [employer]. All rights reserved. The codes documented in this report are preliminary and upon advertising analyst review may be revised to meet current compliance requirements. Christine Dubois MD 01/08/2024 2:58:59 PM This report has been signed electronically. Note Initiated On: 01/08/2024 2:15 PM Number of Addenda: [id number] [place] [address] [employer]ATION 01/08/2024 2:15 PM CDT Christine Dubois MD GI PROCEDURE ORDERABLES Edited Result - Final Performing Organization Address City/[facility]/ZIP Co de Phone Number [facility] [employer]ATION * LIPID PROFILE (EXTERAL RESULT ENTRY) (12/12/2022 8:50 AM CDT) Cholesterol (EXTERNAL RESULT) 177 mg/dL OTHER LAB Triglycerides (EXTERNAL RESULT) 114 mg/dL OTHER LAB HDL (EXTERNAL RESULT) 76 mg/dL OTHER LAB LDL (EXTERNAL RESULT) 81 mg/dL OTHER LAB VLDL (EXTERNAL RESULT) 20 mg/dL OTHER LAB Chol HDL Ratio (External Result) OTHER LAB Blood BLOOD SPECIMEN / Unknown 12/12/2022 8:50 AM CDT Bernard Webb MD LAB - CHEMISTRY ORDERABLE S Final Result Performing Organization Address [facility] de Phone Number OTHER LAB * HEPATITIS SCREEN ACUTE (08/27/2022 11:46 PM CDT) Hepatitis A Virus Antibody IgM Non-react ashtyn Non-reac tive 08/28/2022 12:41 AM CDT [facility] Hepatitis B Virus Surface Antigen Non-react ashtyn Non-reac tive 08/28/2022 12:41 AM CDT [facility] Hepatitis B Core Virus Antibody IgM Non-react ashtyn Non-reac tive 08/28/2022 12:41 AM CDT [facility] Hepatitis C Antibody Non-react ashtyn Non-reac tive 08/28/2022 12:41 AM CDT [facility] Comment:Hepatitis C Antibody screen indicates no serologic evidence of past or current infection with Hepatitis C Virus. Patients with unexplained liver disease who are immunocompromised or suspected of having acute Hepatitis C infection may benefit from Nucleic Acid Test (LORE) for Hepatitis C Viral RNA to confirm Hepatitis C status. Blood BLOOD SPECIMEN / Unknown Lab Venipuncture / Unknown 08/27/2022 11:46 PM CDT 08/27/2022 11:56 PM CDT Heriberto Katz MD LAB - CHEMISTRY ORDERABLES Fin al Result [facility] [address] [place] [address], [id number] [phone] from Last 3 Months or Most Recently Relevant to Health Maintenance Additional Health Concerns Infection Onset Date Last Indicated ESBL GNR 01/03/2024 01/03/2024 Insurance MEDICAID - [place] Advance Directives Documents on File Type Date Recorded Patient Back Hanger Expl anation Adv Directive/Living Will/POA 01/14/2024 12:32 PM Adv Directive/Living Will/POA 12/14/2022 12:52 PM GI * Full Code (Latest Code Status on File) Date Activated Date Inactivated Comments 04/27/2024 4:24 PM 04/28/2024 4:20 PM * Full Code Date Activated Date Inactivated Comments 01/03/2024 12:52 AM 01/13/2024 4:20 PM * Full Code Date Activated Date Inactivated Comments 11/29/2023 7:05 PM 12/04/2023 7:19 PM * Full Code Date Activated Date Inactivated Comments 10/13/2023 7:47 PM 10/15/2023 7:34 PM * Full Code Date Activated Date Inactivated Comments 09/21/2022 8:33 PM 09/23/2022 3:51 PM Care Teams Store Receiving Clerk Relationship Specialty Start Date End Date Wang Rebollar MD [address] [place] [id number] PCP - General Family Medicine 04/11/16 Pooja Navas, KIMBERLEE Registered Nurse 02/14/19
--- OUTSIDE RECORDS SUMMARY | 2024-11-02 21:41 | XMS_ITS | Clinical Summary ---
Author Organization [facility] Address [address] [place] [address] Care Team Providers Care Decaler Name Role Phone Wang Rebollar MD Primary Care Provider Mlavin Drummond MD Unavailable [phone] Allergies Active Allergy Reactions Criticality Noted Date Comments Mycophenolate Diarrhea 03/11/2024 Medications albuterol sulfate HFA 108 (90 Base) MCG/ACT inhaler Inhale 2 puffs into the lungs daily. 02/27/20 13 Active finasteride 5 MG tablet Take 1 tablet (5 mg total) by mouth. 09/27/19 19 Active tamsulosin 0.4 MG Cap Take 1 capsule (0.4 mg total) by mouth daily. 09/17/19 19 Active montelukast 10 MG tablet Take 1 tablet (10 mg total) by mouth daily. 06/23/19 20 Active tacrolimus (PROGRAF) 1 MG capsule Take 1 capsule (1 mg total) by mouth 2 (two) times daily. Active fluticasone propionate (FLONASE) 50 MCG/ACT nasal spray 1 spray by Each Nostril route daily. 10/19/19 24 Active albuterol (PROVENTIL) (2.5 MG/3ML) 0.083% nebulizer solution Take 3 mLs (2.5 mg total) by nebulization 2 (two) times a day. Active apixaban (ELIQUIS) 5 MG tablet Take 2 tablets (10 mg total) by mouth 2 (two) times daily for 7 days, THEN 1 tablet (5 mg total) 2 (two) times daily for 60 days. 60 tablet 11/27/19 24 Active pantoprazole EC (PROTONIX) 40 MG tablet Take 1 tablet (40 mg total) by mouth daily for 30 days. 30 tablet 11/28/19 24 Active HYDROcodone-acetam inophen (NORCO) 7.5-325 MG tablet 01/15/20 24 Active furosemide (LASIX) 40 MG tablet Take 1 tablet (40 mg total) by mouth daily. 02/04/20 24 Active pregabalin (LYRICA) 25 MG capsule Take 1 capsule (25 mg total) by mouth 2 (two) times daily. 12/05/19 24 Active tiZANidine (ZANAFLEX) 2 MG tablet Take 1 tablet (2 mg total) by mouth. 11/14/19 24 Active traZODone (DESYREL) 150 MG tablet Take 1 tablet (150 mg total) by mouth nightly at bedtime. 03/07/20 24 Active DULoxetine (CYMBALTA) 30 MG capsule Take 1 capsule (30 mg total) by mouth daily. Active aspirin 81 MG chewable tablet Chew 1 tablet (81 mg total) by mouth daily. Active ondansetron (ZOFRAN-ODT) 4 MG disintegrating tablet Take 1 tablet (4 mg total) by mouth every 8 (eight) hours as needed for Nausea. 10 tablet 05/08/19 25 Active methylPREDNISolone , BLAINE, (MEDROL DOSEPAK) 4 MG tablet Take as directed 1 each 06/05/19 25 Active budesonide-formote rol (SYMBICORT) 160-4.5 MCG/ACT inhaler Inhale 2 puffs into the lungs 2 (two) times daily. Active Active Problems Problem Noted Date Diagnosed Date Chest pain 08/21/2024 DVT (deep venous thrombosis) ([facility]) 0 08/21/2024 Syncope 11/25/2023 Acute respiratory failure with hypoxia ([facility]) 04/17/2023 Tobacco abuse 04/13/2023 Pneumonia 04/12/2023 COPD with acute bronchitis ([facility]) Lumbar radiculopathy 06/11/2018 COPD (chronic obstructive pu lmonary disease) ([facility]) Influenza A Encounters Date Type Department Care Team Description 10/07/2024 Results Follow-Up [facility] [address] [place] [address] Frances Villalobos, RN CTA CORONARY INCIDENTAL FINDINGS, CREATININE WHOLE BLOOD 10/06/2024 11:53 AM CDT - 10/06/2024 11:59 PM CDT Hospital Encounter [facility] [address] [place] [address] Malvin Drummond MD Discharge Disposition: Home or Self Care (Routine Discharge) 10/06/2024 Travel 09/22/2024 Telephone [facility] [address] [place] [address] Malvin Drummond MD Reschedule 08/28/2024 Telephone [facility] [address] [place] [address] Malvin Drummond MD Called To Cancel Office Appt. 08/22/2024 Telephone [facility] [address] [place] [address] Malvin Drummond MD Schedule Test 08/21/2024 1:15 PM CDT Office Visit [facility] [address] [place] [address] Malvin Drummond MD Referral Request; Chest Pain ( ref.) 08/21/2024 Travel 08/08/2024 11:35 AM CDT - 08/08/2024 11:59 PM CDT Hospital Encounter [facility] [place] [address] Wang Rebollar MD Discharge Disposition: Home or Self Care (Routine Discharge) 08/08/2024 Travel from Last 3 Months Immunizations Immunization Administration Dates Next Due Hepatitis B 01/14/2016 Influenza (Generic) 01/07/2017,01/05/2016,2015 Influenza Adult (Generic) 02/14/2019,02/20/2018 Pneumococcal (Pneumovax 23) 12/07/2015 Pneumococcal (Prevnar 13) 02/20/2018 Family History Medical History Relation Comments Cancer Father Cancer Mother Relation Status Comments Father Mother Social History Tobacco Use Types Packs/Day Years Used Date Smoking Tobacco: Every Day Cigarettes 0.5 5.5 Started: 2019 Smokeless Tobacco: Never Tobacco Cessation:Ready to Q uit: Not Asked; Counseling Given: Not Answered Alcohol Use Standard Drinks/Week Comments Not Currently 0 (1 standard drink = 0.6 oz pur e alcohol) B1300 Health Literacy Answer Date Recor ded How often do you need to hav e someone help you when you read instructions, pamphlets, or other written material from your doctor or pharmacy? Always 12/12/2023 [facility] Utilities Answer Date Recorded In the past 12 months has e [employer], gas, oil, or water [employer] threatened to shut off services in your home? No 12/12/2023 Humiliation, Afraid, Rape, and Kick questionnair e Answer Date Recorded Within the last year, have y ou been afraid of your partner or ex-partner? No 12/12/2023 Within the last year, have y ou been humiliated or emotionally abused in other ways by your partner or ex-partner? No Within the last year, have y ou been kicked, hit, slapped, or otherwise physically hurt by your partner or ex-partner? No 12/12/2023 Within the last year, have y ou been raped or forced to have any kind of sexual activity by your partner or ex-partner? No 12/12/2023 Social Connection and Isolation Panel [NHANES] A nswer Date Recorded In a typical week, how many times do you talk on the phone with family, friends, or neighbors? Patient unable to answer 12/12/2023 How often do you get togethe r with friends or relatives? Patient unable to answer 12/12/2023 How often do you attend chur ch or church services? Never 12/12/2023 Do you belong to any clubs o r organizations such as scientology groups, unions, fraternal or athletic groups, or school groups? Yes 12/12/2023 How often do you attend meet ings of the clubs or organizations you belong to? Never 12/12/2023 Are you , , di vorced, , never , or living with a partner? 12/12/2023 AUDIT-C Answer Date Recorded Frequency of Alcohol Consumption Not on file 12/12/2023 Q2: How many drinks containi ng alcohol do you have on a typical day when you are drinking? Patient does not drink Q3: How often do you have si x or more drinks on one occasion? Never 12/12/2023 Overall Financial Resource Strain (CARDIA) Answe r Date Recorded How hard is it for you to pa y for the very basics like food, housing, medical care, and heating? Not hard at all 12/12/2023 PHQ-2 Answer Date Recorded Patient Health Questionnaire-2 Score 0 04/12/2023 [facility] - Occupational Stress Questionnaire Answer Date Recorded Do you feel stress - tense, restless, nervous, or anxious, or unable to sleep at night because your mind is troubled all the time - these days? To some extent 12/12/2023 Exercise Vital Sign Answer Date Recorde d On average, how many days pe r week do you engage in moderate to strenuous exercise (like a brisk walk)? 0 days 12/12/2023 On average, how many minutes do you engage in exercise at this level? 0 min 12/12/2023 Hunger Vital Sign Answer Date Recorded Within the past 12 months, y ou worried that your food would run out before you got the money to buy more. Never true 12/12/19 24 Within the past 12 months, t he food you bought just didn't last and you didn't have money to get more. Never true 12/12/2023 PRAPARE - Transportation Answer Date Re corded In the past 12 months, has l ack of transportation kept you from medical appointments or from getting medications? No 11/15 In the past 12 months, has l ack of transportation kept you from meetings, work, or from getting things needed for daily living? No 12/12/2023 Housing Stability Vital Sign Answer Sami e [...] place to sleep or slept in a care home (including now)? No 04/17/2023 Housing Stability Vital Sign Answer Sami e Recorded In the last 12 months, was t here a time when you were not able to pay the mortgage or rent on time? No 12/12/2023 In the past 12 months, how m any times have you moved where you were living? 1 12/12/2023 At any time in the past 12 m [facility], were you homeless or living in a care home (including now)? 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 [employer]IPPER Sexual Orientation Choose not to disclose 2022 7:45 PM SPRING CL[employer]PER Last Filed Vital Signs Vital Sign Reading Time Taken Comments Blood Pressure 116/68 10/06/2024 12:58 PM CDT Pulse 50 10/06/2024 12:58 PM CDT Temperature 36.7 C (98.1 F) 07/07/2024 5:46 PM CDT Respiratory Rate 18 08/21/2024 1:02 PM CDT Oxygen Saturation 95% 10/06/2024 12:58 PM CDT Inhaled Oxygen Concentration - - Weight 76.2 kg (168 lb) 08/21/2024 1:02 PM CDT Height 167.6 cm (5' 6) 08/21/2024 1:02 PM CDT Body Mass Index 27.12 08/21/2024 1:02 PM CDT Plan of Treatment Health Maintenance Due Date Last Done Comments ASCVD Statin 1955 COVID-19 Vaccine (#1) 1958 DTaP, Tdap and Td Vaccines (1 - Tdap) 02/14/1972 Zoster Vaccines (1 of 2) 02/14/1972 RSV Immunization or 60+ Years (1 - Risk 60-74 years 1-dose series) 2013 Annual Medicare Wellness Visit 2018 Pneumococcal Vaccine: 50+ Years (3 of 3 - PPSV23, PCV20 or PCV21) 12/06/2020 02/20/2018, 12/07/2015 Colorectal Cancer Screening FIT/FOBT (1 Year) 12/13/2024 12/14/2023, 11/09/2023, 07/04/2018 Hepatitis C Completed 08/27/2022 AAA SCREENING Completed 05/08/2024, 04/16, 04/27/2024, Additional history exists Meningococcal B Vaccine Aged Out No l onger eligible based on patient's age to complete this topic Meningococcal Vaccine Aged Out No nickie josefa eligible based on patient's age to complete this topic RSV Immunizations Under 20 Months Aged Out No longer eligible based on patient's age to complete this topic Goals Goal Patient Goal Type Associated Problems Recent Progress Patient-Stated? 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 Procedure Name Priority Date/Time Associated Diagnosis Comments CTA CORONARY INCIDENTAL FINDINGS Routine 10/06/2024 1:05 PM CDT Chest pain CREATININE WHOLE BLOOD Routine 12:39 PM CDT ELECTROCARDIOGRAM (NON MIDMARK ACQUIRED) Routine 08/21/2024 1:08 PM CDT Chest pain XR HIP LT 2V Routine 08/08/2024 11:53 AM CDT Left hip pain XR HIP RT 2V Routine 08/08/2024 11:53 AM CDT Right hip pain CT ABD+PEL W CON STAT 05/08/2024 1:11 PM SPRING CLIPPER OCCULT BLOOD, FECES Routine 12/14/2023 1 0:30 AM CDT from Last 3 Months or Most Recently Relevant to Health Maintenance Results * CTA CORONARY INCIDENTAL FINDINGS (10/06/2024 1:05 PM CDT) Anatomical Region Laterality Modality Chest Computed Tomogra phy 10/07/2024 9:30 AM CDT Impressions 10/07/2024 9:35 AM CDT IMPRESSION: 1. Cardiac findings interpreted by piano sounding board matcher. 2. Dilatation of ascending thoracic aorta measuring approximately 4.3 cm, unchanged from November 2023. 3. No suspicious mass or consolidation in the visualized lungs. Ordered By: MALVIN DRUMMOND Interpreted By: Cat Schumacher MD, 10/07/2024 9:30 AM Narrative 10/07/2024 9:35 AM CDT [facility] [address], [place] [address] EXAMINATION: CARDIAC COMPUTED TOMOGRAPHY ANGIOGRAM, ROUTINE CORONARY CTA. LUNG OVER READ. DATE: 10/06/2024 HISTORY: 69-year old male with coronary artery disease risk factors presenting for evaluation of the presence of coronary artery disease. COMPARISON: CTA chest 11/26/2023 TECHNIQUE: Multidetector computerized tomography coronary angiogram was obtained using retrospective ECG gating after the administration of 80 mL of Isovue-370 intravenous contrast at 5 mL/sec with 50 mL saline push according to coronary CTA protocol. ECG tube modulation was used to reduce the radiation exposure. A dose lowering technique was used for this procedure, which may include, but is not limited to, dose reduction technique, automated exposure control, the use of iterative reconstruction, and ALARA (As Low As Reasonably Achievable) / Image Gently techniques. Medications: Administered by cardiology service. Vital signs: Recorded by cardiology service. Procedure Complications/Allergic reactions: None. Coronary CT angiogram quality: Determined by cardiology service. FINDINGS: CORONARY ARTERY ANGIOGRAM AND OTHER CARDIAC FINDINGS: Interpreted by piano sounding board matcher. EXTRACARDIAC FINDINGS: The visible lungs contain no suspicious mass or consolidation. Calcified granulomas. Atherosclerotic calcification of the thoracic aorta. Dilatation of the ascending thoracic aorta measuring approximately 4.3 cm, unchanged. Visualized pulmonary artery appears normal. Calcification in the liver, likely granulomatous. Gynecomastia. No suspicious osteolytic or osteoblastic lesions. Multilevel spondylosis. Procedure Note Cat Schumacher MD - 10/07/2024 [facility] [address], [place] [address] EXAMINATION: CARDIAC COMPUTED TOMOGRAPHY ANGIOGRAM, ROUTINE CORONARY CTA.LUNG OVER READ. DATE: 10/06/2024 HISTORY: 69-year old male with coronary artery disease risk factorspresenting for evaluation of the presence of coronary artery disease. COMPARISON: CTA chest 11/26/2023 TECHNIQUE: Multidetector computerized tomography coronary angiogram wasobtained using retrospective ECG gating after the administration of 80 mLof Isovue-370 intravenous contrast at 5 mL/sec with 50 mL saline pushaccording to coronary CTA protocol. ECG tube modulation was used to reducethe radiation exposure. A dose lowering technique was used for thisprocedure, which may include, but is not limited to, dose reductiontechnique, automated exposure control, the use of iterativereconstruction, and ALARA (As Low As Reasonably Achievable) / Image Gentlytechniques. Medications: Administered by cardiology service. Vital signs: Recorded by cardiology service. Procedure Complications/Allergic reactions: None. Coronary CT angiogram quality: Determined by cardiology service. FINDINGS: CORONARY ARTERY ANGIOGRAM AND OTHER CARDIAC FINDINGS: Interpreted bycardiologist. EXTRACARDIAC FINDINGS: The visible lungs contain no suspicious mass or consolidation. Calcifiedgranulomas. Atherosclerotic calcification of the thoracic aorta.Dilatation of the ascending thoracic aorta measuring approximately 4.3 cm,unchanged. Visualized pulmonary artery appears normal. Calcification inthe liver, likely granulomatous. Gynecomastia. No suspicious osteolytic orosteoblastic lesions. Multilevel spondylosis. IMPRESSION: 1. Cardiac findings interpreted by piano sounding board matcher. 2. Dilatation of ascending thoracic aorta measuring approximately 4.3 cm,unchanged from November 2023. 3. No suspicious mass or consolidation in the visualized lungs. Ordered By: MALVIN DRUMMOND Interpreted By: Cat Schumacher MD, 10/07/2024 9:30 AM Malvin Drummond MD CT Final Result * (ABNORMAL) CREATININE WHOLE BLOOD (10/06/2024 12:39 PM CDT) CREATININE WHOLE BLOOD 1.6(H) 0.6 - 1.3 mg/dL 10/06/2024 3:10 PM CDT [facility] GFR ESTIMATE 46(L) >90 ML/MIN/1. 73 M2 10/06/2024 3:10 PM CDT [facility] GFR NOTES GFR REFERENCE S: 10/06/2024 3:10 PM CDT [facility] Comment: THE ESTIMATED GFR IS CALCULATED USING THE 2020 CKD-EPI EQUATION. THE FOLLOWING CATEGORIES FOR GRADING RENAL FUNCTION ARE RECOMMENDED BY THE INTERNATIONAL SOCIETY OF NEPHROLOGY (KDIGO 2012 CLINICAL PRACTICE GUIDELINE). G1,NORMAL OR HIGH: >89 ml/min/1.73 m2 G2,MILDLY DECREASED: 60-89 ml/min/1.73 m2 G3A,MILDLY TO MODERATELY DECREASED: 45-59 ml/min/1.73 m2 G3B,MODERATELY TO SEVERELY DECREASED: 30-44 ml/min/1.73 m2 G4,SEVERELY DECREASED: 15-29 ml/min/1.73 m2 G5,KIDNEY FAILURE: <15 ml/min/1.73 m2 TIME TEST WAS PERFORMED: 1239 10/06/2024 3:10 PM CDT [facility] 10/06/2024 12:3 9 PM CDT Malvin Drummond MD LABORATORY Final Result [facility] [address] [place] [address], [id number] * ELECTROCARDIOGRAM (NON MIDMARK ACQUIRED) (08/21/2024 1:08 PM CDT) 08/21/2024 1:08 PM CDT Narrative [facility] - 08/24/2024 8:16 PM CDT [facility] [address] [place] [address] Test Date: 2024-08-21 Pat Name: ANYA PIZARRO Department: 105 Room: 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1955 Requested By: MALVIN DRUMMOND Order Number: [id number] Reading MD: Malvin Drummond Measurements Intervals [place] Rate: 80 P: 61 KS: 157 QRS: 74 QRSD: 89 T: 56 QT: 408 QTc: 473 Interpretive Statements SINUS RHYTHM WITH FREQUENT SUPRAVENTRICULAR PREMATURE COMPLEXES NONSPECIFIC T-WAVE ABNORMALITY ABNORMAL RHYTHM ECG Procedure Note Malvin Drummond MD - 08/24/2024 [facility] [address] [place] [address] Test Date: 2024-08-21 Pat Name: ANYA PIZARRO Department: 105 Room: 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1955 Requested By: MALVIN DRUMMOND Order Number: [id number] Reading MD: Malvin Drummond Measurements Intervals [place] Rate: 80 P: 61 KS: 157 QRS: 74 QRSD: 89 T: 56 QT: 408 QTc: 473 Interpretive Statements SINUS RHYTHM WITH FREQUENT SUPRAVENTRICULAR PREMATURE COMPLEXES NONSPECIFIC T-WAVE ABNORMALITY ABNORMAL RHYTHM ECG Malvin Drummond MD PROCEDURES-ORDERABLE NO SARABJIT GE Final Result [facility] * XR HIP RT 2V (08/08/2024 11:53 AM CDT) Anatomical Region Laterality Modality Hip Radiographic Anjelica ging 08/10/2024 6:33 PM CDT Impressions 08/10/2024 6:34 PM CDT IMPRESSION: No acute findings. Stable degenerative changes. Referred By: Interpreted By: Noah Hernandez MD, 08/10/2024 6:33 PM Narrative 08/10/2024 6:34 PM CDT [address] [place] [address] Examination: Right hip. Exam time: 1128 hours. Clinical history: Pain. Recent fall. Comparison: 12/31/2023. Technique: Two views. Findings: No fracture, dislocation or other acute bony abnormality is identified. There are stable mild degenerative changes manifested by joint space narrowing, subchondral sclerosis and acetabular osteophyte formation. No other significant bone or joint abnormality is noted. The soft tissues are unremarkable. Procedure Note Noah Hernandez MD - 08/10/[address] [place] [address] Examination: Right hip. Exam time: 1128 hours. Clinical history: Pain. Recent fall. Comparison: 12/31/2023. Technique: Two views. Findings: No fracture, dislocation or other acute bony abnormality isidentified. There are stable mild degenerative changes manifested byjoint space narrowing, subchondral sclerosis and acetabular osteophyteformation. No other significant bone or joint abnormality is noted. Thesoft tissues are unremarkable. IMPRESSION: No acute findings. Stable degenerative changes. Referred By: Interpreted By: Noah Hernandez MD, 08/10/2024 6:33 PM Wang Rebollar MD GENERAL IMAGING Final Resul t * XR HIP LT 2V (08/08/2024 11:53 AM CDT) Anatomical Region Laterality Modality Hip Radiographic Anjelica ging 08/10/2024 6:36 PM CDT Impressions 08/10/2024 6:37 PM CDT IMPRESSION: No acute findings. Stable degenerative changes. Referred By: Interpreted By: Noah Hernandez MD, 08/10/2024 6:36 PM Narrative 08/10/2024 6:37 PM CDT [address] [place] [address] Examination: Left hip. Exam time: 1128 hours. Clinical history: Pain. Comparison: 07/02/2021. Technique: Two views. Findings: No fracture, dislocation or other acute bony abnormality is identified. There are stable mild degenerative changes manifested by joint space narrowing, subchondral sclerosis and acetabular osteophyte formation. No other significant bone or joint abnormality is noted.Atherosclerotic calcification is noted. The soft tissues are otherwise unremarkable. Procedure Note Noah Hernandez MD - 08/10/2024 [place] [id number] [facility] [place] [address] Examination: Left hip. Exam time: 1128 hours. Clinical history: Pain. Comparison: 07/02/2021. Technique: Two views. Findings: No fracture, dislocation or other acute bony abnormality isidentified. There are stable mild degenerative changes manifested byjoint space narrowing, subchondral sclerosis and acetabular osteophyteformation. No other significant bone or joint abnormality isnoted.Atherosclerotic calcification is noted. The soft tissues areotherwise unremarkable. IMPRESSION: No acute findings. Stable degenerative changes. Referred By: Interpreted By: Noah Hernandez MD, 08/10/2024 6:36 PM us Wang Rebollar MD GENERAL IMAGING Final Resul t * CT ABD+PEL W IV CON ONLY (05/08/2024 1:11 PM SPRING CLIPPER) Anatomical Region Laterality Modality Abdomen Computed Tomogra phy 05/08/2024 1:57 PM SPRING CLIPPER Impressions 05/08/2024 2:15 PM SPRING CLIPPER IMPRESSION: 1. No acute intra-abdominal or intrapelvic process identified. 2. Nonspecific splenic hypodensities as described. Correlation with MRI on a routine basis is suggested for further assessment. 3. Moderate amount of stool in the colon. 4. Additional chronic/nonurgent findings as described. Ordered By: ABELARDO CABRERA Interpreted By: Noah Hernandez MD, 05/08/2024 1:57 PM Narrative 05/08/2024 2:15 PM SPRING [employer]IPPER [place] [id number] [place] [address] Examination: CT of the abdomen and pelvis with contrast. Exam time: 1309 hours. Clinical history: Abdominal pain. Vomiting. Malaise. Normal WBC count. Anemia. History of liver transplant. Comparison: Noncontrast CT of the abdomen and pelvis, 12/31/2023, contrast enhanced CT of the chest, abdomen and pelvis, 11/09/2023. Technique: Following the administration of intravenous contrast, spiral scanning was performed through the abdomen and pelvis. Coronal and sagittal reconstructions were performed from the data set. A dose lowering technique was used for this procedure, which may include, but is not limited to, dose reduction techniques, automated exposure control, the use of iterative reconstruction and ALARA/Image Gently techniques. Findings: Calcified granulomas in the lingula and right lower lobe noted. There is minor dependent subsegmental atelectasis. Allowing for respiratory motion, the lung bases are otherwise clear. No pleural effusions are seen. Calcific coronary artery disease again evident. Changes related to liver transplantation again evident and stable. The liver, pancreas and adrenal glands are otherwise unremarkable. There are scattered subcentimeter hypodensities in the spleen which appear new since 10/20/2023. Although this could reflect differences in bolus timing, the appearance is objectively nonspecific. Correlation with MRI on a routine basis is suggested for further assessment. Bilateral renal cysts are again evident and require no further workup or surveillance. Punctate calculus in the mid to upper pole of the right kidney again evident. The kidneys are otherwise unremarkable. The urinary bladder is nondistended. A normal-appearing appendix is visible. There is a moderate amount of stool in the colon. Colonic diverticulosis is again noted without signs of diverticulitis. There is no ascites, lymphadenopathy or bowel distention. There is stable ectasia of the infrarenal abdominal aorta, without aneurysm. 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 Chronic L5 compression fracture again noted. Procedure Note Noah Hernandez MD - 05/08/2024 [facility] [facility] [address] [place] [address] Examination: CT of the abdomen and pelvis with contrast. Exam time: 1309 hours. Clinical history: Abdominal pain. Vomiting. Malaise. Normal WBC count.Anemia. History of liver transplant. Comparison: Noncontrast CT of the abdomen and pelvis, 12/31/2023, contrastenhanced CT of the chest, abdomen and pelvis, 11/09/2023. Technique: Following the administration of intravenous contrast, spiralscanning was performed through the abdomen and pelvis. Coronal andsagittal reconstructions were performed from the data set. A dose loweringtechnique was used for this procedure, which may include, but is notlimited to, dose reduction techniques, automated exposure control, the useof iterative reconstruction and ALARA/Image Gently techniques. Findings: Calcified granulomas in the lingula and right lower lobe noted.There is minor dependent subsegmental atelectasis. Allowing forrespiratory motion, the lung bases are otherwise clear. No pleuraleffusions are seen. Calcific coronary artery disease again evident.Changes related to liver transplantation again evident and stable. Theliver, pancreas and adrenal glands are otherwise unremarkable. There arescattered subcentimeter hypodensities in the spleen which appear new since10/20/2023. Although this could reflect differences in bolus timing, theappearance is objectively nonspecific. Correlation with MRI on a routinebasis is suggested for further assessment. Bilateral renal cysts are againevident and require no further workup or surveillance. Punctate calculusin the mid to upper pole of the right kidney again evident. The kidneysare otherwise unremarkable. The urinary bladder is nondistended. Anormal-appearing appendix is visible. There is a moderate amount of stoolin the colon. Colonic diverticulosis is again noted without signs ofdiverticulitis. There is no ascites, lymphadenopathy or bowel distention.There is stable ectasia of the infrarenal abdominal aorta, withoutaneurysm. 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 Chronic [id number] fracture again noted. IMPRESSION: 1. No acute intra-abdominal or intrapelvic process identified. 2. Nonspecific splenic hypodensities as described. Correlation with MRI radha routine basis is suggested for further assessment. 3. Moderate amount of stool in the colon. 4. Additional chronic/nonurgent findings as described. Ordered By: ABELARDO CABRERA Interpreted By: Noah Hernandez MD, 05/08/2024 1:57 PM us Abelardo Cabrera DO CT Final Result * (ABNORMAL) OCCULT BLOOD, FECES (12/14/2023 10:30 AM CDT) OCCULT BLOOD FECAL POSITIVE(A ) NEGATIVE 12/14/2023 11:01 AM CDT [facility] Comment:4+ STOOL SPECIMEN / Unknown 12/14/2023 10:30 AM CDT Shelly SIDHU- BODY FLUIDS AND STOOLS OR DERABLES Final Result [facility] [address] [place] [address], from Last 3 Months or Most Recently Relevant to Health Maintenance Additional Health Concerns Infection Onset Date Last Indicated ESBL - Extended Spectrum Beta-lactamase 12/31/19 24 12/31/2023 Insurance [place] [address] [place] [address] Advance Directives Documents on File Type Date Recorded 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 Advance Directives and Living Will 11/29/2023 11:30 AM 10/18/2022 [place] SH[place] FORM POA FOR HEALTH CARE Advance Directives and Living Will 11/26/2023 10:03 AM POA for Health Care Advance Directives and Living Will 05/29/2013 12:00 AM ADVANCED DIRECTIVES * Full Code (Latest Code Status on File) Date Activated Date Inactivated Comments 12/12/2023 1:07 AM 12/15/2023 12:49 PM * Full Code Date Activated Date Inactivated Comments 11/25/2023 3:30 AM 11/28/2023 1:47 PM * Full Code Date Activated Date Inactivated Comments 04/18/2023 8:54 AM 04/19/2023 10:09 PM * Full Code Date Activated Date Inactivated Comments 04/12/2023 9:45 PM 04/14/2023 4:59 PM * Full Code Date Activated Date Inactivated Comments 06/07/2022 7:04 PM 06/08/2022 4:29 PM Care Teams Decaler Relationship Specialty Start Date End Date Wang Rebollar MD [address] [place] [phone] PCP - General FAMILY PRACTICE 05/29/18 Malvin Drummond MD [address] [place] [address] [address] Physician INTERVENTIONAL CARDIOLOGY 12/10/23
--- OUTSIDE RECORDS SUMMARY | 2024-11-02 21:41 | XMS_ITS ---
Author Organization [facility] Address [address] [place] [address] Care Team Providers Care Dressed Poultry Grader Name Role Phone Wang Rebollar MD Primary Care Provider [phone] Pooja Navas RN Unavailable Unavailable Active Problems Problem Noted Date Diagnosed Date [...] disease) stage 3, GFR 30-59 ml/min 05/23/2016 Current Treatment and Therapy Plans No current plan information found. Past Treatment and Therapy Plans No past plan information found. Lifetime Dose Tracking * Chemical Lifetime Dose Automatic Entry Manual Entr y Dose Length Product 1,537 mGy-cm 1,537 mGy-cm 0 mGy-cm Resolved Problems Problem Noted Date Diagnosed Date Resolved Date COPD with acute bronchitis 06/07/2022 10/11/2022 0 01/03/2024 Intractable vomiting with nausea 06/06/2018 09/21/2022 Seasonal allergic rhinitis 02/20/2018 0 09/21/2022 Incisional hernia with obstr uction but no gangrene 09/21/2017 01/03/2024 Abdominal pain, left lower quadrant 08/31/2017 09/21/2022 Pre-transplant evaluation fo r liver transplant 08/09/2017 09/21/2022 Overview (08/09/2017): Diagnosis: EtOH; Referring Cattle Knocker:Nakul Cano MELD: 30 Blood Type: A pos [...] no previous study available for comparison. MD CIELO RachelG'sResults for MAURY BURCH ( ) as of 01/31/2016 17:34 [...] SW: It is the impression of this outreach and education social worker that Maury Burch has several positive factors for Liver [...]
--- NOTE | 2024-11-02 21:46 | ECG_ITS ---
Test Date: 2024-11-02 22:24:42 Measurements Intervals [place] Rate: 80 P: 53 AK: 159 QRS: 55 QRSD: 105 T: 61 QT: 472 QTc: 547 Interpretive Statements SINUS RHYTHM WITH OCCASIONAL SUPRAVENTRICULAR PREMATURE COMPLEXES No previous ECG available for comparison Electronically Signed On 11-03-2024 10:54:37 CDT by Russell De Los Santos M.D.
--- NOTE | 2024-11-02 21:49 | ED_ITS ---
HPI - SOB/Dyspnea General Chief Complaint: Shortness of Breath/Dyspnea Stated Complaint: cough Time Seen by Provider: 11/02/24 21:45 Source: patient Mode of arrival: ambulatory Limitations: no limitations History of Present Illness HPI Narrative: patient is a 69-year-old male who was fishing last night and sitting in his chair and leaned over to grab a fishing pole and fell on some rocks to his left flank ribs area. He is having pain in the right ribs. Further he is having some shortness of breath and cough with wheezing. He does have a history of asthma. History of COPD. MD elicited complaint: shortness of breath, cough and asthma attack Pertinent past history: COPD, asthma and other ( Aortic aneurysm history) Onset (ago): day(s) ( 1) Context: other ( patient was fishing last night and fell onto rocks and hurt his right flank /ribs) Timing: constant Severity: moderate Exacerbating factors: movement and coughing Relieving factors: nothing Known history of: COPD, asthma and other ( aortic aneurysm) Associated symptoms: denies other symptoms Treatment prior to arrival: other ( hydrocodone 7.5 mg without relief) Related Data Home oxygen amount: none Home Medications ?Medication ?Instructions ?Recorded ?Confirmed ?Last Taken ?Type budesonide-formoterol HFA 160 1 inh inhalation DAILY 09/15/21 09/20/22 09/16/22 History mcg-4.5 mcg/actuation aerosol inhaler (Symbicort) duloxetine 60 mg capsule,delayed 1 cap PO DAILY 09/15/21 09/20/22 09/16/22 History release finasteride 5 mg tablet 1 tablet PO DAILY 09/15/21 09/20/22 09/16/22 History fluticasone propionate 50 1 ea intranasal DAILY 09/15/21 09/20/22 09/16/22 History mcg/actuation nasal spray,suspension hydrocodone 5 mg-acetaminophen 325 1 tablet PO Q6-8H 09/15/21 09/20/22 09/16/22 History mg tablet ondansetron HCl 8 mg tablet 1 tablet PO BID 09/15/21 09/20/22 09/16/22 History sertraline 50 mg tablet 1 tablet PO DAILY 09/15/21 09/20/22 09/16/22 History tacrolimus 1 mg capsule, 1 cap PO TID 09/15/21 09/20/22 09/16/22 History immediate-release tamsulosin 0.4 mg capsule 1 cap PO HS 09/15/21 09/20/22 09/16/22 History trazodone 150 mg tablet 1 tablet PO DAILY 09/15/21 09/20/22 08/25/22 History amlodipine 10 mg tablet 10 mg PO DAILY 08/27/22 09/20/22 09/16/22 History cyclobenzaprine 5 mg tablet 5 mg PO TID PRN Muscle Pain 08/27/22 09/20/22 09/16/22 History furosemide 40 mg tablet 40 mg PO DAILY 08/27/22 09/20/22 09/16/22 History gabapentin 800 mg tablet 800 mg PO DAILY 08/27/22 09/20/22 09/16/22 History melatonin 3 mg capsule 3 mg PO HS PRN Insomnia 08/27/22 09/20/22 09/16/22 History montelukast 10 mg tablet 10 mg PO DAILY 08/27/22 09/20/22 09/16/22 History pantoprazole 40 mg tablet,delayed 40 mg PO QAM 08/27/22 09/20/22 09/16/22 History release mycophenolate mofetil 250 mg 1,000 mg PO BID 09/20/22 09/20/22 Unknown History capsule sulfamethoxazole 800 1 tablet PO QMWF 09/20/22 09/20/22 Unknown History mg-trimethoprim 160 mg tablet Allergies Allergy/AdvReac Type Severity Reaction Status Date / Time No Known Allergies Allergy Verified 11/02/24 22:33 Review of Systems 2 Review of Systems: All systems reviewed & are unremarkable except as noted in HPI and below Constitutional: Constitutional: Reports no additional constitutional complaints Eyes: Eyes: Reports no additional eye complaints ENT: Reports system reviewed and no additional complaints, except as documented Cardiovascular: Cardiovascular: Reports no additional cardiovascular complaints Respiratory: Respiratory: Reports no additional respiratory complaints Gastrointestinal: Gastrointestinal: Reports no additional gastrointestinal complaints Genitourinary: Genitourinary: Reports no additional male genitourinary complaints Musculoskeletal: Musculoskeletal: Reports no additional musculoskeletal complaints Integumentary/Breasts: Skin/Breast: Reports system reviewed and no additional complaints, except as docu Neurologic: Reports system reviewed and no additional complaints, except as documented Psychiatric: Psychiatric: Reports no additional psychiatric complaints Endocrine: Endocrine: Reports no additional endocrine complaints Hematologic/Lymphatic: Hematologic/Lymphatic: Reports no additional hematologic/lymphatic complaints Allergic/Immunologic: Allergic/Immunologic: Reports no additional allergic/immunologic complaints [facility] Past Medical History Medical History COPD (chronic obstructive pulmonary disease) Anxiety and depression Insomnia BPH (benign prostatic hyperplasia) Social History Social History Smoking status: Current every day smoker Tobacco type: cigarettes Alcohol intake: former Substance use: never Substance use type: does not use Gender identity (if verbalized by the patient): Male Sexual Orientation (if Verbalized by the Patient): Straight or Heterosexual Spiritual care concerns: No Exam 2 Const: General: healthy appearing Nutritional Appearance: well nourished Orientation/consciousness: patient oriented x3 HENMT: Head: normal to inspection Ears: external ears normal F jeet/Nose/Sinus: Normal external nose present Eyes: Conjunctivae: conjunctivae normal Pupils: Equal, round and reactive pupils present EOM: EOMs intact bilaterally Neck: Neck: normal visual inspection Chest: Chest palpation & inspection: normal inspection of the chest Resp: Effort & Inspection: normal respiratory effort, not labored, no retractions, tachypneic and no use of accessory muscles Auscultation: not clear to auscultation bilaterally, wheezes and diminished lung sounds Cardio: Rate: regular rate Rhythm: regular rhythm Heart sounds: no murmurs GI: Inspection: non-distended GI Palp: Yes Soft to palpation and No Tenderness to palpation present (GI) Auscultation: normal bowel sounds : General: Yes bladder normal to palpation Back/Spine/Pelvis: Back: no CVA tenderness Skin: General skin exam: normal color Rashes: no rashes Wounds: no wounds Neuro: General: patient oriented x3, moves all extremities and no meningeal signs Cranial nerves: Yes Nystagmus not present Speech: normal speech G ait exam (Neuro): Normal gait present Extrem: General: normal to inspection Psych: Mental Status: mental status grossly normal Affect: normal affect Attitude: cooperative Course Vital Signs Vital signs: Vital Signs Temperature 37.3 C 11/02/24 21:34 Pulse Rate 91 11/02/24 21:34 Respiratory Rate 18 11/02/24 21:34 Blood Pressure 148/85 H 11/02/24 21:34 Pulse Oximetry 96 11/02/24 21:34 Oxygen Delivery Room Air 11/02/24 21:34 Temperature 37.3 C 11/02/24 21:34 Pulse Rate 91 11/02/24 21:34 Respiratory Rate 18 11/02/24 21:34 Blood Pressure 148/85 H 11/02/24 21:34 Pulse Oximetry 96 11/02/24 21:34 Oxygen Delivery Room Air 11/02/24 21:34 MDM - SOB/Dyspnea MDM Narrative Medical decision making narrative: patient is a 69-year-old male with a fall to his right side yesterday and now having cough/shortness of breath. We will do a cardiopulmonary workup at this time. Pain control. X-rays. Lab Data Attestation: I reviewed the patient's lab results. 11/02/24 22:07 11/02/24 22:07 Labs: Lab Results 11/02/24 11/02/24 Range/Units 21:54 22:07 WBC 6.8 (4.8-10.8) K/mm3 RBC 3.45 L (4.70-6.10) M/mm3 Hgb 10.9 L (12.4-15.3) g/dL Hct 32.5 L (37.0-46.0) % MCV 94.2 (78.0-102.0) fL MCH 31.6 H (27.0-31.0) pg MCHC 33.5 (32-36) g/dL RDW 14.5 H (11.6-14.4) % Plt Count 113 L (150-420) K/mm3 MPV 9.5 (8.7-11.0) fl Immature Gran % (Auto) 0.1 H (0.0-0.0) % Neut % (Auto) 37.5 L (50.0-70.0) % Lymph % (Auto) 50.8 H (18.0-42.0) % [place] % (Auto) 7.7 (2.0-11.0) % Eos % (Auto) 3.6 (1.0-6.0) % Baso % (Auto) 0.3 (0.0-1.0) % Lymph # (Auto) 3.43 (1.10-4.50) K/mm3 [place] # (Auto) 0.52 (0.10-0.90) K/mm3 Eos # (Auto) 0.24 (0.02-0.50) K/mm3 Baso # (Auto) 0.02 (0.00-0.10) K/mm3 Abs Immat Gran (auto) 0.01 H (0.00-0.00) K/mm3 Absolute Neuts (auto) 2.53 (1.70-7.20) K/mm3 Absolute Nucleated RBC 0.00 (0.00-0.00) K/mm3 Nucleated RBC % 0.0 (0-0.0) % Sodium 138 (137-145) mmol/L Potassium 2.7 L* (3.4-5.0) mmol/L Chloride 104 (98-107) mmol/L Carbon Dioxide 30 (22-30) mmol/L Anion Gap 4 (4-12) mmol/L BUN 17 (9-20) mg/dL Creatinine 1.69 H (0.7-1.3) mg/dL Estim Creat Clear Calc 33 ml/min Estimated GFR 40 L (59 - ) Glucose 139 H (65-110) mg/dL Calculated Osmolality 289 (285-295) mOsm/kg Lactic Acid 1.5 (0.4-2.0) mmol/L Calcium 8.3 L (8.4-10.2) mg/dL Total Bilirubin 0.7 (0.2-1.3) mg/dL AST 35 (17-59) U/L ALT 16 (6-50) U/L Alkaline Phosphatase 114 (38-126) U/L Troponin I 0.032 (0.000-0.034) ng/mL NT-Pro-B Natriuret Pep 229 H (19.9-100) pg/mL Total Protein 6.4 (6.3-8.2) g/dL Albumin 3.4 L (3.5-5.1) g/dL Influenza A (RT-PCR) Negative (Negative) Influenza B (RT-PCR) Negative (Negative) RSV (RT-PCR) Negative (Negative) SARS-CoV-2 RNA (RT-PCR) Negative (Negative) Imaging Data Attestation: I personally reviewed and interpreted this imaging study as follows: Radiologist's impression: Chest x-ray with ribs on the right shows no acute process ECG Data EKG #1: Attestation: I personally reviewed and interpreted this ECG as follows: ECG completion date: 11/02/24 ECG completion time: 22:12 EKG Interpretation: normal rate, sinus rhythm, PACs, non-specific ST changes, normal QRS, normal QT and NL axis Discharge Plan Discharge Clinical Impression: Acute exacerbation of chronic obstructive pulmonary disease, Contusion of rib on right side, Hypokalemia, Fall, CKD (chronic kidney disease) Patient Disposition: Home Condition: Improved Instructions: Antibiotic Form, COPD (Chronic Obstructive Pulmonary Disease) (DC), Pulmonary Contusion (ED) Patient Language: Chinese Prescriptions: New oxycodone-acetaminophen [Percocet] 5-325 mg tablet 1 tablet PO Q8H PRN (Reason: pain) Qty: 20 0RF azithromycin 250 mg tablet See Rx Instructions .ROUTE .COMPLEX Qty: 6 0RF Rx Instructions: For 250 mg dose pack: take 500 mg today (day 1), then 250 mg for 4 days (days 2-5) methylprednisolone [Medrol (Sergio)] 4 mg tablets,dose pack See Rx Instructions .ROUTE .COMPLEX Qty: 21 0RF Rx Instructions: orally per package directions potassium chloride [K-Tab] 20 mEq tablet extended release 40 meq PO ONCE Qty: 2 0RF No Action hydrocodone-acetaminophen 5-325 mg tablet 1 tablet PO Q6-8H ondansetron HCl 8 mg tablet 1 tablet PO BID tamsulosin 0.4 mg capsule 1 cap PO HS trazodone 150 mg tablet 1 tablet PO DAILY fluticasone propionate 50 mcg/actuation spray,suspension 1 ea INTRANASAL DAILY sertraline 50 mg tablet 1 tablet PO DAILY tacrolimus 1 mg capsule 1 cap PO TID finasteride 5 mg tablet 1 tablet PO DAILY duloxetine 60 mg capsule,delayed release(DR/EC) 1 cap PO DAILY budesonide-formoterol [Symbicort] 160-4.5 mcg/actuation HFA aerosol inhaler 1 inh INHALATION DAILY albuterol sulfate 90 mcg/actuation HFA aerosol inhaler 1 inh inhalation QID PRN (Reason: shortness of breath or wheezing) Qty: 6.7 0RF (DME) nebulizers Misc See Rx Instructions .Route Qty: 1 0RF Rx Instructions: As directed furosemide 40 mg Tablet 40 mg PO DAILY gabapentin 800 mg Tablet 800 mg PO DAILY amlodipine 10 mg Tablet 10 mg PO DAILY pantoprazole 40 mg Tablet,Delayed Release (Dr/Ec) 40 mg PO QAM montelukast 10 mg Tablet 10 mg PO DAILY cyclobenzaprine 5 mg Tablet 5 mg PO TID PRN (Reason: Muscle Pain) melatonin 3 mg Capsule 3 mg PO HS PRN (Reason: Insomnia) amoxicillin-pot clavulanate [Augmentin] 500-125 mg tablet 1 tablet PO TID Qty: 20 0RF mycophenolate mofetil 250 mg capsule 1,000 mg PO BID sulfamethoxazole-trimethoprim 800-160 mg tablet 1 tablet PO QMWF Follow-up/Referrals: Keturah,MD Wang [Primary Care Provider] - Time of Disposition: 23:33
--- OUTSIDE RECORDS SUMMARY | 2024-11-02 22:11 | XMS_ITS ---
Author Organization [facility] Address [address] [address] Care Team Providers Care Sow Farm Barn Technician Name Role Phone Wang Rebollar MD Primary Care Provider [phone] Pooja Navas RN Unavailable Unavailable Transplant Episode Liver Candidate [facility] ([place], [place]) - [facility] Evaluation began on 07/13/2015 Marked as Ineligible on 08/23/2015 Reason: Patient Choice Liver CoordinatorDana Lara Phone: N/A Fax: N/A Email: N/A Scores Score Value Updated Expires Exceptions/Graham sons CPRA Not available UNOS MELD Not available MELD (Calc) 10 04/28/2024 [place] Organ Diagnosis Organ Primary Contributory Liver Alcoholic Cirrhosis Care Team Name Role Phone Fax Email Dana Lara Liver Coordinator N/A N/A N/ A Naty Solorzano MD Referring Physician [phone] N/A Events Pre-Transplant Referred: 07/05/2015 Evaluation began: 07/13/2015
--- OUTSIDE RECORDS SUMMARY | 2024-11-02 22:11 | XMS_ITS | Encounter Summary ---
Author Organization [facility] Address [address] [place] [address] Care Team Providers Care Contact Center Consultant Name Role Phone Wang Rebolalr MD Primary Care Provider [phone] Malvin Drummond MD Unavailable [phone] Encounter Details Date Type Department Care Team (Latest Contact Info) Description 11/29/2023 [employer] Message Enc [facility] Cardiovascular Care Unit [address] [place], [place] [id number] Geovani, [facility] Provider discharge follow up call Social History Tobacco Use Types Packs/Day Years Used Date Smoking Tobacco: Every Day Cigarettes 0.5 5.5 Started: 2019 Smokeless Tobacco: Never Alcohol Use Standard Drinks/Week Comments Not Currently 0 (1 standard drink = 0.6 oz pur e alcohol) [facility] Utilities Answer Date Recorded In the past 12 months has e [employer], gas, oil, or water [email or web address] threatened to shut off services in your [...] week 04/12/2023 How often do you attend mormonism or mormon serv ices? Never 04/12/2023 Do you belong to any clubs o r organizations such as mormonism groups, unions, fraternal or athletic groups, or [...] Recorded Patient Health Questionnaire-2 Score 0 04/12/2023 [facility] [place] of Occupat ional Health - Occupational Stress [...] place to sleep or slept in a fci (including now)? No 04/17/2023 Housing Stability Vital Sign Answer Sami e Recorded In the last 12 months, was t here a time when you were not able to pay the mortgage or rent on time? No 11/25/2023 In the past 12 months, how m any times have you moved where you were living? 1 11/25/2023 At any time in the past 12 m [facility], were you homeless or living in a fci (including now)? No 11/25/2023 Sex and Gender Information Value Date Recorded Sex Assigned at Male 06/07/2022 7:45 PM WEB RETAILER Legal Sex Male 5:07 PM CDT Gender Identity Male 06/07/2022 7:45 PM WEB RETAILER Sexual Orientation Choose not to disclose 2022 7:45 PM WEB RETAILER documented as of this encounter Functional Status [...] Rule Out 04/26/2024 04/26/2024 04/26/2024 10:20 PM WEB RETAILER COVID-19 Rule Out 05/08/2024 05/08/2024 05/08/2024 1:21 PM WEB RETAILER COVID-19 Rule Out 06/05/2024 06/05/2024 06/05/2024 1:17 AM WEB RETAILER documented as of this encounter Care Teams Contact Center Consultant Relationship Specialty Start Date End Date Wang Rebollar MD [address] [place] [phone] PCP - General FAMILY PRACTICE 05/29/18 Malvin Drummond MD [address] [facility] [address] [place] [address] Physician INTERVENTIONAL CARDIOLOGY 12/10/23 documented as of this encounter
--- OUTSIDE RECORDS SUMMARY | 2024-11-02 22:11 | XMS_ITS | Clinical Summary ---
Author Organization [facility] Address [address] [facility] [place] [address] Care Team Providers Care Runner On Name Role Phone Wang Rebollar MD Primary Care Provider [phone] Pooja Navas RN Unavailable Unavailable Source Comments [facility],non-owned Affiliates and Associated Physician Practices is amultiple site organization consisting of ambulatory clinics and hospital sitesin [place], [place], [place] and [place]. This disclosure is being madepursuant to the Care Everywhere program and may not contain all information available regarding this patient. Last updated 18.[facility] Allergies Active Allergy Reactions Criticality Noted Date [...] nasal sprayIndications: Seasonal allergic rhinitis, unspecified trigger [place] 2 (two) sprays into each nostril once [...] by mouth once daily Active HYDROcodone-aceta minophen ([place]) 7.5-325 MG tablet Take 1 (one) tablet [...] 08/09/2017 09/21/2022 Overview (08/09/2017): Diagnosis: EtOH; Referring Range Technician:Nakul Cano MELD: 30 Blood Type: A pos [...] SW: It is the impression of this vp digital marketing social media and crm that Anya Burch has several positive factors [...] Department Care Team Description 09/19/[address] [facility] Physician [facility] - [address] [phone] Margarita Joyce PA-C Liver replaced by transplant (HCC); Long-term use of immunosuppressant medication; Liver transplant rejection (HCC); Alcohol abuse following liver transplant (HCC); Stage 3a chronic kidney disease (HCC) 09/05/[address] [facility] - [address] [phone] Margarita Joyce PA-C Liver replaced by transplant (HCC); Long-term use of immunosuppressant medication; Liver transplant rejection (HCC); Alcohol abuse following liver transplant (HCC); Stage 3a chronic kidney disease (HCC) 08/22/[address] [facility] Physician [facility] - [address] [phone] Margarita Joyce PA-C Liver replaced by transplant (HCC); Long-term use of immunosuppressant medication; Liver transplant rejection (HCC); Alcohol abuse following liver transplant (HCC); Stage 3a chronic kidney disease (HCC) 08/08/[address] [facility] Physician [facility] - [address] [phone] Margarita Joyce PA-C Liver replaced by transplant [...] care, and heating? Not very hard 01/04/2024 [facility] [place] of Occupat ional Health - Occupational Stress [...] place to sleep or slept in a [facility]p (including now)? No 01/04/2024 Sex and Gender Information Value Date Recorded Sex Assigned at Not on file Legal Sex Male 2:29 PM CLAY PRODUCTS MACHINE OPERATOR Gender Identity Not on file Sexual Orientation Not on file Last Filed Vital Signs Vital Sign Reading Time Taken Comments Blood Pressure 119/83 04/28/2024 2:40 PM CLAY PRODUCTS MACHINE OPERATOR Pulse 92 04/28/2024 2:40 PM CLAY PRODUCTS MACHINE OPERATOR Temperature 36.5 C (97.7 F) 04/27/2024 1:40 PM CLAY PRODUCTS MACHINE OPERATOR Respiratory Rate 21 04/28/2024 2:41 PM CLAY PRODUCTS MACHINE OPERATOR Oxygen Saturation 96% 04/28/2024 2:40 PM CLAY PRODUCTS MACHINE OPERATOR Inhaled Oxygen Concentration 21% 09/27/2017 5 :15 AM CDT Weight 77.1 kg (170 lb) 04/27/2024 10:52 AM CLAY PRODUCTS MACHINE OPERATOR Height 167.6 cm (5' 6) 04/27/2024 10:52 AM CLAY PRODUCTS MACHINE OPERATOR Body Mass Index 27.44 04/27/2024 10:52 AM CLAY PRODUCTS MACHINE OPERATOR Plan of Treatment Health Maintenance Due Date [...] the bathroom Medical Devices Implanted Type Area Costume Technician Device Identifier Shelf Expiration Date Model / Serial / Lot Graft Prcn 7.9x5.9in Xenmatrix Ab Rect Implanted:Qty: 1 on 09/21/2017 by Will Pollard MD at [facility] Left: Abdomen [employer] 08/11/2018 [id number] / / [id number] Procedures Procedure Name Priority Date/Time Associated Diagnosis Comments COMPREHENSIVE METABOLIC PANEL STAT 04/28/2024 6:12 AM CLAY PRODUCTS MACHINE OPERATOR ENDOSCOPY, COLON, DIAGNOSTIC Routine 01/08/2024 2:15 PM CDT LIPID PROFILE (EXTERAL RESULT ENTRY) Routine 12/12/2022 8:50 AM CDT HEPATITIS SCREEN ACUTE Routine 11:46 PM CDT from Last 3 Months or Most Recently Relevant to Health Maintenance Results * (ABNORMAL) COMPREHENSIVE METABOLIC PANEL (04/28/2024 6:12 AM CLAY PRODUCTS MACHINE OPERATOR) BUN 11 7 - 26 mg/dL 04/28/2024 6:58 AM [facility] Creatinine 1.06 0.71 - 1.16 mg/dL 04/28/2024 6:58 AM [facility] Sodium 142 136 - 145 mmol/L 04/28/2024 6:58 AM [facility] Potassium 3.6 3.5 - 4.5 mmol/L 04/28/2024 6:58 AM [facility] Chloride 107 98 - 107 mmol/L 04/28/2024 6:58 AM [facility] CO2 28 22 - 29 mmol/L 04/28/2024 6:58 AM [facility] Glucose 89 70 - 99 mg/dL 04/28/2024 6:58 AM [facility] Calcium 7.6(L) 8.4 - 10.2 mg/dL 04/28/2024 6:58 AM [facility] Protein Total 5.3(L) 6.0 - 8.3 g/dL 04/28/2024 6:58 AM [facility] Albumin 1.9(L) 3.4 - 5.0 g/dL 04/28/2024 6:58 AM [facility] Bilirubin Total 0.5 0.2 - 1.2 mg/dL 04/28/2024 6:58 AM [facility] Alkaline Phosphatase 351(H) 40 - 150 U/L 04/28/2024 6:58 AM [facility] ALT 27 5 - 55 U/L 04/28/2024 6:58 AM [facility] AST 63(H) 5 - 34 U/L 04/28/2024 6:58 AM [facility] Anion Gap 7 6 - 16 04/28/2024 6:58 AM [facility] BUN/Creatinine Ratio 10 7 - 23 04/28/2024 6:58 AM [facility] Osmolality Calculated 293 275 - 295 mOsm/kg 04/28/2024 6:58 AM [facility] Albumin/Globulin Ratio 0.6(L) 1.1 - 2.3 04/28/2024 6:58 AM [facility] eGFR by CKD-EPI 75(L) >=90 mL/min/1.7 3 m2 04/28/2024 6:58 AM [facility] Blood BLOOD SPECIMEN / Unknown Venipuncture / Unknown 04/28/2024 6:12 AM CLAY PRODUCTS MACHINE OPERATOR 04/28/2024 6:25 AM [facility] us Christine Dubois MD LAB - CHEMISTRY ORDERABLES Sondra huang Result [facility] [address] [place] [address], [facility] [phone] * ENDOSCOPY, COLON, DIAGNOSTIC (01/08/2024 2:15 PM [...] entire procedure. Procedure Code(s): --- Professional --- 47646, Colonoscopy, flexible; with biopsy, single or multiple Diagnosis Code(s): --- Professional --- K52.9, Noninfective gastroenteritis and colitis, unspecified R19.7, Diarrhea, unspecified CPT copyright 2021 [employer]. All rights reserved. The codes documented in this report are preliminary and upon duty engineer review may be revised to meet current compliance requirements. Christine Dubois MD 01/08/2024 2:58:59 PM This report has been signed electronically. Note Initiated On: 01/08/2024 2:15 PM Number of Addenda: [id number] [place] [address] PROVATION 01/08/2024 2:15 PM CDT Christine Dubois MD GI PROCEDURE ORDERABLES Edited Result - Final Performing Organization Address City/[facility]/ZIP Co de Phone Number [facility] PROVATION * LIPID PROFILE (EXTERAL RESULT ENTRY) [...] ORDERABLE S Final Result Performing Organization Address [facility] de Phone Number OTHER LAB * HEPATITIS SCREEN ACUTE (08/27/2022 11:46 PM CDT) Hepatitis A Virus Antibody IgM Non-react ashtyn Non-reac tive 08/28/2022 12:41 AM CDT [facility] Hepatitis B Virus Surface Antigen Non-react ashtyn Non-reac tive 08/28/2022 12:41 AM CDT [facility] Hepatitis B Core Virus Antibody IgM Non-react ashtyn Non-reac tive 08/28/2022 12:41 AM CDT [facility] Hepatitis C Antibody Non-react ashtyn Non-reac tive 08/28/2022 12:41 AM CDT [facility] Comment:Hepatitis C Antibody screen indicates [...] LAB - CHEMISTRY ORDERABLES Fin al Result [facility] [address] [place] [address], [facility] [phone] from Last 3 Months or Most Recently Relevant to Health Maintenance Additional Health Concerns Infection Onset Date Last Indicated ESBL GNR 01/03/2024 01/03/2024 Insurance MEDICAID - [place] Advance Directives Documents on File Type Date Recorded 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
--- OUTSIDE RECORDS SUMMARY | 2024-11-02 22:11 | XMS_ITS | Encounter Summary ---
Author Organization [facility] Address [address] [facility] [place] [address] Care Team Providers Care Magento Developer Name Role Phone Wang Rebollar MD Primary Care Provider [phone] Sylwia Lynn RN Unavailable Unavailable Pooja Navas RN Unavailable Unavailable Reason for Visit * Reason Comments Refill Request Encounter Details Date Type Department Care Team (Late st Contact Info) Description 07/23/2017 Refill [facility] 3L [address] [facility], [place] [phone] Will Pollard MD [address] [facility] [place] [address] Refill Request Social History Tobacco Use Types Packs/Day Years Used Date Smoking Tobacco: Never Assessed Sex and Gender Information Value Date Recorded Sex Assigned at Not on file Legal Sex Male 2:29 PM LOKIE DRIVER Gender Identity Not on file Sexual Orientation [...] Under Investigation 04/27/2024 04/27/2024 04/27/2024 4:13 PM LOKIE DRIVER COVID-19 Under Investigation 04/27/2024 04/27/2024 04/27/2024 9:36 PM LOKIE DRIVER documented as of this encounter Care Teams Magento Developer Relationship Specialty Start Date End Date Wang Rebollar MD [address] [place] [phone] PCP - General Family Medicine 04/11/16 Sylwia Lynn, RN Registered Nurse 08/09/17 02/13/19 Pooja Navas, RN Registered Nurse 02/14/19 documented as of this encounter
--- OUTSIDE RECORDS SUMMARY | 2024-11-02 22:11 | XMS_ITS ---
Author Organization [facility] Address [address] [place] [address] Care Team Providers Care Procedural Nurse Name Role Phone Wang Rebollar MD Primary Care Provider [phone] Pooja Navas RN Unavailable Unavailable Transplant Episode Liver Recipient [facility] ([place], [place]) - [facility] Organ Received: Liver Transplanted on 02/08/2016 Marked as Active Follow-up on 02/08/2016 Liver CoordinatorPooja Navas RN Phone: N/A Fax: N/A Email: N/A [place] Organ Diagnosis Organ Primary Contributory Liver Alcoholic [...] N/A N/A Jean Murillo MD Referring Physician [phone] N/A Will Pollard MD Transplant Surgeon [phone] N/A Events Post-Transplant Pre-Transplant Admitted: 02/08/2016 Referred: 01/21/2016 Transplanted: 02/08/2016 Evaluation began: 6 Discharged: 02/18/2016 Center waitlisted: 6
--- OUTSIDE RECORDS SUMMARY | 2024-11-02 22:11 | XMS_ITS | Encounter Summary ---
Author Organization [facility] Address [address] [place] [address] Care Team Providers Care Roller Picker Name Role Phone Wang Rebollar MD Primary Care Provider Malvin Drummond MD Unavailable [phone] Encounter Details Date Type Department Care Team (Late st Contact Info) Description 11/29/2023 Hospital Follow-up Call [facility] [address] [place] [address] Cami Cook, RN Social History Tobacco Use Types Packs/Day Years Used Date Smoking Tobacco: Every Day Cigarettes 0.5 5.5 Started: 2020 Smokeless Tobacco: Never Alcohol Use Standard Drinks/Week Comments Not Currently 0 (1 standard drink = 0.6 oz pur e alcohol) [facility] Utilities Answer Date Recorded In the past 12 months has e [employer], gas, oil, or water [employer] threatened to shut off services in your [...] week 04/12/2023 How often do you attend congregation or mormonism serv ices? Never 04/12/2023 Do you belong to any clubs o r organizations such as congregation groups, unions, fraternal or athletic groups, or [...] Recorded Patient Health Questionnaire-2 Score 0 04/12/2023 [facility] of Occupat ional Health - Occupational [...] slept in a correction (including now)? No 04/17/2023 Housing Stability Vital Sign Answer Sami e Recorded In the last 12 months, was t here a time when you were not able to pay the mortgage or rent on time? No 11/25/2023 In the past 12 months, how m any times have you moved where you were living? 1 11/25/2023 At any time in the past 12 m [facility], were you homeless or living in a correction (including now)? No 11/25/2023 Sex and Gender Information Value Date Recorded Sex Assigned at Male 06/07/2022 7:45 PM ROPEWALK ROPE MAKER Legal Sex Male 5:07 PM CDT Gender Identity Male 06/07/2022 7:45 PM ROPEWALK ROPE MAKER Sexual Orientation Choose not to disclose 2022 7:45 PM ROPEWALK ROPE MAKER documented as of this encounter Functional Status [...] Rule Out 04/26/2024 04/26/2024 04/26/2024 10:20 PM ROPEWALK ROPE MAKER COVID-19 Rule Out 05/08/2024 05/08/2024 05/08/2024 1:21 PM ROPEWALK ROPE MAKER COVID-19 Rule Out 06/05/2024 06/05/2024 06/05/2024 1:17 AM ROPEWALK ROPE MAKER documented as of this encounter Care Teams Roller Picker Relationship Specialty Start Date End Date Wang Rebollar MD [address] [place] [phone] PCP - General FAMILY PRACTICE 05/29/18 Malvin Drummond MD [address] [facility] [address] [place] [address] Physician INTERVENTIONAL CARDIOLOGY 12/10/23 documented as of this encounter
--- OUTSIDE RECORDS SUMMARY | 2024-11-02 22:11 | XMS_ITS | Encounter Summary ---
Author Organization [facility] Address [facility] [place] [address] Care Team Providers Care Intellectual Property Counsel Name Role Phone Wang Rebollar MD Primary Care Provider [phone] Malvin Drummond MD Unavailable [phone] Encounter Details Date Type Department Care Team (Late st Contact Info) Description 09/21/2018 Abstract [facility]FL CONVERSION [address] [place] [address] , Generic Conversion, Social History [...] Sex Assigned at Male 06/07/2022 7:45 PM DOPSTER Legal Sex Male 5:07 PM CDT Gender Identity Male 06/07/2022 7:45 PM DOPSTER Sexual Orientation Choose not to disclose 2022 7:45 PM DOPSTER documented as of this encounter Plan of Treatment Not on file documented as of this encounter Visit Diagnoses Not on filedocumented in this encounter Additional Health Concerns Infection Onset Date Last Indicated Resolved Time COVID-19 Rule Out 03/23/2021 03/23/2021 03/23/2021 11:21 PM DOPSTER COVID-19 Rule Out 06/07/2022 06/07/2022 06/07/2022 4:34 PM DOPSTER COVID-19 Rule Out 04/12/2023 04/12/2023 04/12/2023 4:38 PM DOPSTER Influenza - Seasonal 04/12/2023 04/17/2023 024 12:32 AM DOPSTER COVID-19 Rule Out 04/17/2023 04/17/2023 04/17/2023 10:03 AM DOPSTER COVID-19 Rule Out 04/17/2023 04/17/2023 04/18/2023 1:08 PM DOPSTER COVID-19 Rule Out 12/12/2023 12/12/2023 12/12/2023 6:43 PM CDT COVID-19 Rule Out 12/31/2023 12/31/2023 12/31/2023 10:22 AM CDT ESBL - Extended Spectrum Beta-lactamase 12/31/2023 12/31/2023 COVID-19 Rule Out 04/26/2024 04/26/2024 04/26/2024 10:20 PM DOPSTER COVID-19 Rule Out 05/08/2024 05/08/2024 05/08/2024 1:21 PM DOPSTER COVID-19 Rule Out 06/05/2024 06/05/2024 06/05/2024 1:17 AM DOPSTER documented as of this encounter Care Teams Intellectual Property Counsel Relationship Specialty Start Date End Date Wang Rebollar MD [address] [place] [phone] PCP - General FAMILY PRACTICE 05/29/18 Malvin Drummond MD [address] [place] [address] [address] Physician INTERVENTIONAL CARDIOLOGY 12/10/23 documented as of this encounter
--- OUTSIDE RECORDS SUMMARY | 2024-11-02 22:11 | XMS_ITS | Encounter Summary ---
Author Organization [facility] Address [address] [facility] [place] [address] Care Team Providers Care Elevator Repair Mechanic Name Role Phone Wang Rebollar MD Primary Care Provider [phone] Pooja Navas RN Unavailable Unavailable Reason for Visit * Reason Onset Date Comments Reschedule Appointment 09/13/2023 Encounter Details Date Type Department Care Team (Late st Contact Info) Description 09/13/2023 Telephone [facility] - Dermatology [address] [facility] [place] [address] [place] [address] [facility] [address] [place] [address] Reschedule Appointment Social History Tobacco [...] care, and heating? Not very hard 09/21/2022 [facility] of Occupat ional Health - Occupational Stress [...] place to sleep or slept in a nursing home (including now)? No 09/21/2022 Sex and Gender Information Value Date Recorded Sex Assigned at Not on file Legal Sex Male 2:29 PM PROPOSAL ENGINEER Gender Identity Not on file Sexual Orientation [...] Under Investigation 04/27/2024 04/27/2024 04/27/2024 4:13 PM PROPOSAL ENGINEER COVID-19 Under Investigation 04/27/2024 04/27/2024 04/27/2024 9:36 PM PROPOSAL ENGINEER documented as of this encounter Care Teams Elevator Repair Mechanic Relationship Specialty Start Date End Date Wang Rebollar MD [address] [place] [phone] PCP - General Family Medicine 04/11/16 Pooja Navas, KIMBERLEE Registered Nurse 02/14/19 documented as of this encounter
--- OUTSIDE RECORDS SUMMARY | 2024-11-02 22:11 | XMS_ITS | Clinical Summary ---
Author Organization [facility] Address [address] [place] [address] Care Team Providers Care Broadcast Chief Engineer Name Role Phone Wang Rebollar MD Primary Care Provider Malvin Drummond MD Unavailable [phone] Allergies Active Allergy Reactions Criticality Noted Date [...] Chest pain 08/21/2024 DVT (deep venous thrombosis) ([facility]) 0 08/21/2024 Syncope 11/25/2023 Acute respiratory failure with hypoxia ([facility]) 04/17/2023 Tobacco abuse 04/13/2023 Pneumonia 04/12/2023 COPD with acute bronchitis ([facility]) Lumbar radiculopathy 06/11/2018 COPD (chronic obstructive pu lmonary disease) ([facility]) Influenza A Encounters Date Type Department Care Team Description 10/07/2024 Results Follow-Up [facility] [address] [place] [address] Frances Villalobos, RN CTA CORONARY INCIDENTAL FINDINGS, CREATININE WHOLE BLOOD 10/06/2024 11:53 AM CDT - 10/06/2024 11:59 PM CDT Hospital Encounter [facility] [address] [place] [address] Malvin Drummond MD Discharge Disposition: Home or Self Care (Routine Discharge) 10/06/2024 Travel 09/22/2024 Telephone [facility] [address] [place] [address] Malvin Drummond MD Reschedule 08/28/2024 Telephone [facility] [address] [place] [address] Malvin Drummond MD Called To Cancel Office Appt. 08/22/2024 Telephone [facility] [address] [place] [address] Malvin Drummond MD Schedule Test 08/21/2024 1:15 PM CDT Office Visit [facility] [address] [place] [address] Malvin Drummond MD Referral Request; Chest Pain ( ref.) 08/21/2024 Travel 08/08/2024 11:35 AM CDT - 08/08/2024 11:59 PM CDT Hospital Encounter [facility] [place] [address] Wang Rebollar MD Discharge Disposition: Home or [...] from your doctor or pharmacy? Always 12/12/2023 [facility] Utilities Answer Date Recorded In the past 12 months has e [employer], gas, oil, or water [employer] threatened to shut off services in your [...] often do you attend chur ch or baptist services? Never 12/12/2023 Do you belong to any clubs o r organizations such as evangelical groups, unions, fraternal or athletic groups, or [...] Recorded Patient Health Questionnaire-2 Score 0 04/12/2023 [facility] - Occupational Stress [...] place to sleep or slept in a group home (including now)? No 04/17/2023 Housing Stability [...] any time in the past 12 [facility], were you homeless or living in a group home (including now)? 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 Cardiac findings interpreted by pillar man. 2. Dilatation of ascending thoracic aorta measuring approximately 4.3 cm, unchanged from November 2023. 3. No suspicious mass or consolidation in the visualized lungs. Ordered By: MALVIN DRUMMOND Interpreted By: Cat Schumacher MD, 10/07/2024 9:30 AM Narrative 10/07/2024 9:35 AM CDT [facility] [address], [place] [address] EXAMINATION: CARDIAC COMPUTED TOMOGRAPHY ANGIOGRAM, ROUTINE CORONARY [...] ANGIOGRAM AND OTHER CARDIAC FINDINGS: Interpreted by pillar man. EXTRACARDIAC FINDINGS: The visible lungs contain no suspicious mass or consolidation. Calcified granulomas. Atherosclerotic calcification of the thoracic aorta. Dilatation of the ascending thoracic aorta measuring approximately 4.3 cm, unchanged. Visualized pulmonary artery appears normal. Calcification in the liver, likely granulomatous. Gynecomastia. No suspicious osteolytic or osteoblastic lesions. Multilevel spondylosis. Procedure Note Cat Schumacher MD - 10/07/2024 [facility] [address], [place] [address] EXAMINATION: CARDIAC COMPUTED TOMOGRAPHY ANGIOGRAM, ROUTINE CORONARY [...] spondylosis. IMPRESSION: 1. Cardiac findings interpreted by pillar man. 2. Dilatation of ascending thoracic aorta measuring approximately 4.3 cm,unchanged from November 2023. 3. No suspicious mass or consolidation in the visualized lungs. Ordered By: MALVIN DRUMMOND Interpreted By: Cat Schumacher MD, 10/07/2024 9:30 AM Malvin Drummond MD CT Final Result * (ABNORMAL) CREATININE WHOLE BLOOD (10/06/2024 12:39 PM CDT) CREATININE WHOLE BLOOD 1.6(H) 0.6 - 1.3 mg/dL 10/06/2024 3:10 PM CDT [facility] GFR ESTIMATE 46(L) >90 ML/MIN/1. 73 M2 10/06/2024 3:10 PM CDT [facility] GFR NOTES GFR REFERENCE S: 10/06/2024 3:10 PM CDT [facility] Comment: THE ESTIMATED GFR IS [...] WAS PERFORMED: 1239 10/06/2024 3:10 PM CDT [facility] 10/06/2024 12:3 9 PM CDT Malvin Drummond MD LABORATORY Final Result [facility] [address] [place] [address], [id number] * ELECTROCARDIOGRAM (NON MIDMARK ACQUIRED) (08/21/2024 1:08 PM CDT) 08/21/2024 1:08 PM CDT Narrative [facility] - 08/24/2024 8:16 PM CDT [facility] [address] [place] [address] Test Date: 2024-08-21 Pat Name: ANYA PIZARRO Department: 105 Room: 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 : 1955 Requested By: MALVIN DRUMMOND Order Number: [id number] Reading MD: Malvin Drummond Measurements Intervals [place] Rate: 80 P: 61 [place]: 157 QRS: 74 QRSD: 89 T: 56 QT: 408 QTc: 473 Interpretive Statements SINUS RHYTHM WITH FREQUENT SUPRAVENTRICULAR PREMATURE COMPLEXES NONSPECIFIC T-WAVE ABNORMALITY ABNORMAL RHYTHM ECG Procedure Note Malvin Drummond MD - 08/24/2024 [facility] [address] [place] [address] Test Date: 2024-08-21 Pat Name: ANYA PIZARRO Department: 105 Room: 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: : 1955 Requested By: MALVIN DRUMMOND Order Number: [id number] Reading MD: Malvin Drummond Measurements Intervals [place] Rate: 80 P: 61 [place]: 157 QRS: 74 QRSD: 89 T: 56 QT: 408 QTc: 473 Interpretive Statements SINUS RHYTHM WITH FREQUENT SUPRAVENTRICULAR PREMATURE COMPLEXES NONSPECIFIC T-WAVE ABNORMALITY ABNORMAL RHYTHM ECG Malvin Drummond MD PROCEDURES-ORDERABLE NO SARABJIT GE Final Result [facility] * XR HIP RT 2V (08/08/2024 11:53 AM CDT) Anatomical Region Laterality Modality Hip Radiographic Anjelica ging 08/10/2024 6:33 PM CDT Impressions 08/10/2024 6:34 PM CDT IMPRESSION: No acute findings. Stable degenerative changes. Referred By: Interpreted By: Noah Hernandez MD, 08/10/2024 6:33 PM Narrative 08/10/2024 6:34 PM CDT [address] [place] [address] Examination: Right hip. Exam time: 1128 hours. [...] Procedure Note Noah Hernandez MD - 08/10/[address] [place] [address] Examination: Right hip. Exam time: 1128 hours. [...] 6:36 PM Narrative 08/10/2024 6:37 PM CDT [address] [place] [address] Examination: Left hip. Exam time: 1128 hours. [...] Procedure Note Noah Hernandez MD - 08/10/2024 [place] [id number] [facility] [place] [address] Examination: Left hip. Exam time: 1128 hours. [...] W IV CON ONLY (05/08/2024 1:11 PM MEDICAL CSR) Anatomical Region Laterality Modality Abdomen Computed Tomogra phy 05/08/2024 1:57 PM MEDICAL CSR Impressions 05/08/2024 2:15 PM MEDICAL CSR IMPRESSION: 1. No acute intra-abdominal or intrapelvic process identified. 2. Nonspecific splenic hypodensities as described. Correlation with MRI on a routine basis is suggested for further assessment. 3. Moderate amount of stool in the colon. 4. Additional chronic/nonurgent findings as described. Ordered By: ABELARDO CABRERA Interpreted By: Noah Hernandez MD, 05/08/2024 1:57 PM Narrative 05/08/2024 2:15 PM MEDICAL CSR [place] [id number] [place] [address] Examination: CT of the abdomen and pelvis [...] Procedure Note Noah Hernandez MD - 05/08/2024 [facility] [address] [place] [address] Examination: CT of the abdomen and pelvis [...] quadrantmesenteric varices again demonstrated, chronically present. Chronic [id number] fracture again noted. IMPRESSION: 1. No acute [...] POSITIVE(A ) NEGATIVE 12/14/2023 11:01 AM CDT [facility] Comment:4+ STOOL SPECIMEN / Unknown 12/14/2023 10:30 AM CDT Shelly SIDHU- BODY FLUIDS AND STOOLS OR DERABLES Final Result [facility] [address] [place] [address], from Last 3 Months or Most Recently Relevant to Health Maintenance Additional Health Concerns Infection Onset Date Last Indicated ESBL - Extended Spectrum Beta-lactamase 12/31/19 24 12/31/2023 Insurance MEDICARE MEDICAID [facility] Advance Directives Documents on File Type Date Recorded 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
--- OUTSIDE RECORDS SUMMARY | 2024-11-02 22:11 | XMS_ITS ---
Author Organization [facility] Address [address] [place] [address] Care Team Providers Care Finishing Lab Technician Name Role Phone Wang Rebollar MD Primary Care Provider [phone] Pooja Navas RN Unavailable Unavailable Active Problems [...] 08/09/2017 09/21/2022 Overview (08/09/2017): Diagnosis: EtOH; Referring Typesetters Printer:Nakul Cano MELD: 30 Blood Type: A pos [...] SW: It is the impression of this director of social services that Maury Burch has several positive factors [...]
[2024-11-02 22:17] LABS: Hematocrit 32.5 % (37.0-46.0); Hemoglobin 10.9 g/dL (12.4-15.3); Immature Granulocyte Percent A 0.1 % (0.0-0.0); Lymphocytes Absolute Auto 3.43 K/mm3 (1.10-4.50); Mean Corpuscular HGB Conc 33.5 g/dL (32-36); Mean Corpuscular Hemoglobin 31.6 pg (27.0-31.0); Mean Corpuscular Volume 94.2 fL (78.0-102.0); Nucleated Red Blood Cells Absolute Auto 0.00 K/mm3 (0.00-0.00); Nucleated Red Blood Cells Perc 0.0 % (0-0.0); Platelet Count Result 113 K/mm3 (150-420); Red Blood Count 3.45 M/mm3 (4.70-6.10); White Blood Count 6.8 K/mm3 (4.8-10.8)
[2024-11-02 22:29] LABS: Alanine Aminotransferase 16 U/L (6-50); Albumin Level 3.4 g/dL (3.5-5.1); Alkaline Phosphatase 114 U/L (38-126); Anion Gap 4 mmol/L (4-12); Aspartate Amino Transferase 35 U/L (17-59); Bilirubin,Total 0.7 mg/dL (0.2-1.3); Blood Urea Nitrogen 17 mg/dL (9-20); Calcium 8.3 mg/dL (8.4-10.2); Carbon Dioxide 30 mmol/L (22-30); Chloride 104 mmol/L (98-107); Estimated CRCL calculation 33 ml/min; Estimated Glomerular Filt Rate 40; Glucose 139 mg/dL (65-110); Osmolality Calculated 289 mOsm/kg (285-295); Sodium 138 mmol/L (137-145); Total Protein 6.4 g/dL (6.3-8.2)
[2024-11-02] MEDS: oxyCODONE/ACETAMINOPHEN (*CRX) 5-325 MG TABLET 1 TABLET PO (22:34)
[2024-11-02 22:42] LABS: NT Pro B Type Natriuretic Pept 229 pg/mL (19.9-100); Troponin I 0.032 ng/mL (0.000-0.034)
[2024-11-02 22:43] LABS: Potassium 2.7 mmol/L (3.4-5.0)
[2024-11-02 22:55] LABS: Influenza A QL RT-PCR Negative (Negative); Influenza B QL RT-PCR Negative (Negative); RSV RNA, RT-PCR Negative (Negative); SARS-CoV-2 RNA PCR Negative (Negative)
[2024-11-02] MEDS: POTASSIUM CHLORIDE 20 MEQ ER TABLET 40 MEQ PO (23:35)
[2024-11-02 23:51] VITALS: BP 143/77; PULSE 94; RESP 18; O2SAT 96
--- NOTE | 2024-11-05 12:31 | PC.NURSE ---
PRELIMINARY BLOOD CULTURE NO GROWTH AT THIS TIME
--- NOTE | 2024-11-06 12:16 | PC.NURSE ---
PRELIMINARY BLOOD CULTURE REPORT; NO GROWTH IN 24 HOURS.
--- NOTE | 2024-11-07 12:10 | PC.NURSE ---
preliminary blood culture, no growth
--- NOTE | 2024-11-10 12:54 | PC.NURSE ---
FINAL BLOOD CULTURE REPORT; NO GROWTH IN 5 DAYS.
== END 2024-11-02 23:51 | disposition home or self-care (01) ==
PROVIDERS: Emergency Provider Emergency Medicine; PCP Family Medicine
DX: J44.1 Chronic obstructive pulmonary disease with (acute) exacerbation (principal); S20.211A Contusion of right front wall of thorax, initial encounter; E87.6 Hypokalemia; N18.9 Chronic kidney disease, unspecified; F17.210 Nicotine dependence, cigarettes, uncomplicated; Z20.822 Contact with and (suspected) exposure to COVID-19; W07.XXXA Fall from chair, initial encounter
CPT/HCPCS: 36415; 71046; 71100; 80053; 83605; 83880; 84484; 85025; 87637; 93005; 94640; 96372; 99284; A9270; J2919